=== PATIENT | female | born 1960 | race Caucasian/White ===

== ENCOUNTER → 2016-02-20 | Outpatient (CLI) | payer BC ==
[~2016-02-20] MED LIST: CLB200 PO; HYDR-5688 PO; LEVO125T4 PO; METO25TA3 PO; MULT-506 PO; OXYSR10 PO; XRL10 PO
--- NOTE | 2016-02-20 15:47 | MAMMOGRAPHY REPORT ---
BILATERAL DIGITAL SCREENING MAMMOGRAM TOMOSYNTHESIS WITH CAD: 02/20/2016 CLINICAL HISTORY: Routine screening. Patient has no complaints. TECHNIQUE: Breast tomosynthesis in addition to standard 2D mammography was performed. Current study was also evaluated with a Computer Aided Detection (CAD) system. COMPARISON: Comparison is made to exams dated: 10/28/2013 mammogram, 08/05/2012 mammogram, 04/24/2010 mammogram, and 02/12/2009 mammogram - [facility]. BREAST COMPOSITION: There are scattered areas of fibroglandular density in both breasts. FINDINGS: No suspicious masses, calcifications, or areas of architectural distortion are noted in e ither breast. There has been no significant interval change compared to prior exams. IMPRESSION: ACR BI-RADS CATEGORY 1: NEGATIVE There is no mammographic evidence of malignancy. A 1 year screening mammogram is recommended. The p atient will receive written notification of the results. Approximately 10% of breast cancers are not detected with mammography. A negative mammographic repor t should not delay biopsy if a clinically suggestive mass is present. Tiffani Herrera M.D. ah/:02/20/2016 15:31:57 [employer] Supervisor: Cher Vaz [facility] letter sent: Normal 1/2 BI-RADS Code: ACR BI-RADS Category 1: Negative
== END | disposition home or self-care (01) ==
LOC: C.MAMM 15:03
PROVIDERS: ATTEND Family Medicine
DX: Z12.31 Encounter for screening mammogram for malignant neoplasm of breast (principal)

== ENCOUNTER → 2017-03-09 | Outpatient (CLI) | payer BC ==
[~2017-03-09] MED LIST changes: -LEVO125T4 PO; +LEVO125T5 PO
[2017-03-09 12:44] LABS: BASO % 0.6 %; BASO ABS # 0.04 K/uL (0-0.2); EOS % 2.7 %; EOS ABS # 0.18 K/uL (0-0.5); HEMATOCRIT 43.8 % (37-47); HEMOGLOBIN 14.3 g/dL (12.0-16.0); IG# 0.02 K/uL (0.00-0.02); LYMPH % 30.6 %; LYMPH ABS # 2.02 K/uL (1.2-3.4); MEAN CELL VOLUME 89.6 fL (80-100); MEAN CORPUSCULAR HEMOGLOBIN 29.2 pg (25-34); MEAN CORPUSCULAR HGB CONC 32.6 g/dl (32-36); MEAN PLATELET VOLUME 11.3 fL (7.4-10.4); MONO % 10.7 %; MONO ABS # 0.71 K/uL (0.11-0.59); NEUT % 55.1 %; NEUT ABS # 3.64 K/uL (1.4-6.5); PLATELET COUNT 247 K/uL (130-400); RED CELL DISTRIBUTION WIDTH CV 12.8 % (11.5-14.5); RED CELL DISTRIBUTION WIDTH SD 41.1 fL (36.4-46.3); WHITE BLOOD COUNT 6.61 K/uL (4.8-10.8)
== END | disposition home or self-care (01) ==
LOC: C.LABMFLN 08:23
PROVIDERS: ATTEND Family Medicine
DX: E03.9 Hypothyroidism, unspecified (principal); E78.00 Pure hypercholesterolemia, unspecified; D64.9 Anemia, unspecified

== ENCOUNTER → 2017-04-28 | Outpatient (CLI) | payer BC ==
[~2017-04-28] MED LIST changes: +ASPI81TA28 PO; -CLB200 PO; -HYDR-5688 PO; +MELO7.5T5 PO; -METO25TA3 PO; -OXYSR10 PO; -XRL10 PO; +[UNRECOGNIZED DRUG - OTHER] PO
== END | disposition home or self-care (01) ==
LOC: C.LABMFLN 15:44
PROVIDERS: ATTEND Family Medicine
DX: E03.9 Hypothyroidism, unspecified (principal)

== ENCOUNTER 2017-05-20 04:48 | Inpatient (IN) | payer BC ==
[2017-04-24 11:35] VITALS: Ht 154.9 cm; Wt 112.3 kg
--- NOTE | 2017-04-24 12:06 | PAT Medication Instructions ---
Service Date Apr 24, 2017. Current Home Medication List Aspirin (Aspirin Ec), 81 MG PO QAM Levothyroxine Sodium (Levothyroxine Sodium), 125 MCG PO HS Meloxicam (Mobic), 15 MG PO QAM Multivitamin (Multivitamin), 1 TAB PO HS [Zzquil], 15 ML PO HS PRN for events traffic controller Instructions For Your Scheduled Surgery - Check with surgeon for instructions: Meloxicam (Mobic), 15 MG PO QAM - Take the following medications the morning of surgery with a sip of water: Aspirin (Aspirin Ec), 81 MG PO QAM - Take the following medications as scheduled the night before surgery: [Zzquil], 15 ML PO HS PRN for RN (for sleep aide)-- if needed Multivitamin (Multivitamin), 1 TAB PO HS Levothyroxine Sodium (Levothyroxine Sodium), 125 MCG PO HS If you have any questions please call us at [phone] or [phone] or [phone]
[2017-04-24 12:54] LABS: BASO % 0.4 %; BASO ABS # 0.04 K/uL (0-0.2); EOS % 1.7 %; EOS ABS # 0.16 K/uL (0-0.5); HEMATOCRIT 42.3 % (37-47); HEMOGLOBIN 14.2 g/dL (12.0-16.0); IG# 0.03 K/uL (0.00-0.02); LYMPH % 21.9 %; MEAN CELL VOLUME 89.1 fL (80-100); MEAN CORPUSCULAR HEMOGLOBIN 29.9 pg (25-34); MEAN CORPUSCULAR HGB CONC 33.6 g/dl (32-36); MEAN PLATELET VOLUME 10.8 fL (7.4-10.4); MONO % 6.9 %; MONO ABS # 0.66 K/uL (0.11-0.59); NEUT % 68.8 %; NEUT ABS # 6.62 K/uL (1.4-6.5); PLATELET COUNT 238 K/uL (130-400); RED CELL DISTRIBUTION WIDTH CV 13.1 % (11.5-14.5); RED CELL DISTRIBUTION WIDTH SD 42.8 fL (36.4-46.3); WHITE BLOOD COUNT 9.61 K/uL (4.8-10.8)
--- NOTE | 2017-04-24 12:59 | DIAGNOSTIC IMAGING REPORT ---
CHEST 2 VIEWS ROUTINE HISTORY: 56 years-old Female PAT preoperative exam. No acute chest complaints. COMPARISON: Chest radiographs 03/03/2014 TECHNIQUE: PA and lateral views of the chest. FINDINGS: Cardiac mediastinal and hilar silhouettes are within normal limits. Mild right hemidiaphragmatic elevation. There is no pneumothorax, pleural effusion, focal airspace consolidation or overt pulmonary edema. The bones of the chest appear grossly intact. IMPRESSION: No acute process. The above report was generated using voice recognition software. It may contain grammatical, syntax or spelling errors. Electronically signed by: Cristian Grande M.D. 04/24/2017 12:57 PM Dictated Date/Time: 04/24/2017 12:56 PM
[2017-04-24 13:06] LABS: PTT PATIENT 27.9 SECONDS (21.0-31.0)
[2017-04-24 13:10] LABS: ALBUMIN 3.5 gm/dl (3.4-5.0); CALCIUM 9.4 mg/dl (8.5-10.1); CREATININE 0.84 mg/dl (0.60-1.20); POTASSIUM 4.1 mmol/L (3.5-5.1)
[2017-04-24 13:28] LABS: HEMOGLOBIN A1C 5.7 % (4.5-5.6)
--- NOTE | 2017-05-19 22:17 | HISTORY & PHYSICAL EXAMINATION ---
DATE OF ADMISSION: 05/20/2017 CHIEF COMPLAINT: Chronic left knee pain. HISTORY OF PRESENT ILLNESS: This is a 56-year-old female patient of Dr. Rose'matthew complaining of chronic left knee pain, longstanding, now progressively getting worse. Patient has been diagnosed with end-stage osteoarthritis. Patient has failed conservative treatment including intraarticular injections, anti-inflammatories and the use of a brace. Patient has increased pain with weightbearing activities and her pain does interfere with her activities of daily living. PAST MEDICAL HISTORY: Osteoarthritis, acid reflux, obesity, dentures. SOCIAL HISTORY: Nonsmoker, occasional drinker. PAST SURGICAL HISTORY: x2, hysterectomy, knee replacement on the right and teeth extraction. REVIEW OF SYSTEMS: Patient complains of chronic left knee pain and instability. Otherwise denies any shortness of breath, chest pain, nausea, vomiting or any other joint complaints. FAMILY HISTORY: Noncontributory. MEDICATIONS: Levothyroxine 125 mcg daily, aspirin 81 mg daily, Meloxicam 15 mg daily, vitamin daily and at night for sleep. ALLERGIES: FLEXERIL. PHYSICAL EXAMINATION: GENERAL: Well-developed, well-nourished 56-year-old female in no acute distress. She is alert and oriented x3 and pleasant. HEENT: Normocephalic, atraumatic. Extraocular motions are intact. Pupils are equal and reactive to light. HEART: Regular rate and rhythm, no murmurs. LUNGS: Clear. ABDOMEN: Soft, nontender, bowel sounds present. EXTREMITIES: Left knee, she has crepitation with passive range of motion. Range of motion is limited to 0-120 degrees. She has a mild effusion with 5/5 strength. NEUROLOGIC: Neurovascularly, she is intact with medial joint line tenderness. DIAGNOSES: Left knee end-stage osteoarthritis, acid reflux, obesity. PLAN: Patient was advised of her diagnoses. Indications, risks, benefits, postop course have all been reviewed. Patient wished to proceed with a left total knee arthroplasty. Necessary consent forms, preoperative testing, clearances will be obtained.
[2017-05-20] VITALS (8 sets, daily range): BP systolic 106–131; BP diastolic 71–94; PULSE 75–92; TEMP 36.4–36.8; O2SAT 95–100
[~2017-05-20] VITALS: Ht 154.9 cm; Wt 112.3 kg
[2017-05-20] MEDS ORDERED: ACET-1256 PO (05:52)
[2017-05-20] MEDS ORDERED: DEXAMETHASONE 4 MG TAB PO SCH (06:00)
[2017-05-20] MEDS ORDERED: LACTATED RINGER'S 1000ML 500 ML IV SCH (06:00)
[2017-05-20] MEDS ORDERED: CEFAZOLIN 2000MG IV PUSH 15 ML IV SCH (06:00)
[2017-05-20] MEDS ORDERED: ACETAMINOPHEN 500 MG TAB PO SCH (06:00)
[2017-05-20] MEDS ORDERED: LACTATED RINGER'S 1000ML 1,000 ML IV SCH (06:00)
[2017-05-20] MEDS ORDERED: GABAPENTIN 600 MG PO SCH (06:00)
[2017-05-20] MEDS ORDERED: ROPIVACAINE 5MG/ML 30 ML 150 MG, BUPIVACAINE 0.5% MPF INJ 30 ML, EpINEphrine HCL INJ 0.... INFIL SCH ×8 (06:00)
[2017-05-20] MEDS ORDERED: FAMOTIDINE 20 MG TAB PO SCH (06:00)
[2017-05-20] MEDS ORDERED: CeleBREX 200 MG CAP PO SCH (06:00)
[2017-05-20] MEDS ORDERED: BUPIVACAINE 0.25% 30 ML VIAL ONE (06:20)
[2017-05-20] MEDS ORDERED: BUPIVACAINE 0.5 % 5 MG/1 ML PF 10ML VIAL ONE (06:20)
[2017-05-20] MEDS ORDERED: MIDAZOLAM HCL 1 MG/ML 2ML VIAL ONE (06:37)
[2017-05-20] MEDS ORDERED: FENTANYL CITRATE INJ 50 MCG/1 ML 2 ML VIAL ONE (06:37)
[2017-05-20] MEDS ORDERED: ORTHO JOINT ANESTHETIC ONE (06:39)
[2017-05-20] MEDS ORDERED: BACITRACIN 50000 UNIT VIAL ONE (06:40)
[2017-05-20] MEDS ORDERED: POVIDONE-IODINE OP SOLN 30 ML BTL ONE (06:40)
[2017-05-20] MEDS: TRANEXAMIC ACID INJ 1,000 MG x 2 Bags IV SCH ×4 (06:45→08:45)
--- NOTE | 2017-05-20 06:49 | History & Physical Bridge Note ---
H&P Re-Evaluation Bridge Note: I have examined the patient, reviewed the History & Physical and in the interval since the performance of the History & Physical I have noted the following changes of clinical significance: No changes noted
[2017-05-20] MEDS ORDERED: ATROPINE SULFATE 0.1 MG/ML 5ML SYR IV PRN (08:15)
[2017-05-20] MEDS ORDERED: EpHEDrine SULFATE INJ 50 MG/ML AMP IV PRN (08:15)
--- NOTE | 2017-05-20 08:29 | [facility] Post Operative Brief Note ---
Immediate Operative Summary Operative Date May 20, 2017. Pre-Operative Diagnosis Left Knee End-Stage Osteoarthritis Post-Operative Diagnosis same Procedure(s) Performed Left Total Knee Arthroplasty Surgeon Dr. Taras Rose Table Lever Operator Surgeon(s) Yadiel Bush Pa-c Estimated Blood Loss 10cc Findings Consistent with Post-Op Diagnosis Specimens Specimen A: Left Knee bone and Tissue Drains 2 hemovac Anesthesia Type Spinal MAC Complication(s) none Disposition Disposition: Recovery Room / PACU
[2017-05-20] MEDS ORDERED: PROPOFOL IV EMULSION 10 MG/ML 20 ML VIAL IV ONE ×3 (08:45)
[2017-05-20] MEDS ORDERED: LIDOCAINE HCL 2% 2 ML VIAL (20MG/ML) ONE (08:45)
[2017-05-20] MEDS ORDERED: ZOLPIDEM TARTRATE 5 MG TAB PO PRN (09:30)
[2017-05-20] MEDS ORDERED: METOCLOPRAMIDE HCL INJ 5 MG/ML 2 ML VIAL IV PRN (09:30)
[2017-05-20] MEDS ORDERED: TRAMADOL HCL 50 MG TAB PO PRN (09:30)
[2017-05-20] MEDS ORDERED: ONDANSETRON INJ 2 MG/ML 2 ML VIAL IV PRN (09:30)
[2017-05-20] MEDS ORDERED: BISACODYL 10 MG SUPP PR PRN (09:30)
[2017-05-20] MEDS ORDERED: SOD PHOSPHATE/SOD BIPHOSPHATE ENEMA 132 ML BTL PR PRN (09:30)
[2017-05-20] MEDS ORDERED: MAGNESIUM HYDROXIDE SUSP 30 ML UDC PO PRN (09:30)
[2017-05-20] MEDS ORDERED: MoRPHine SULFATE 2 MG/ML CARP IV PRN (09:30)
--- NOTE | 2017-05-20 09:50 | DIAGNOSTIC IMAGING REPORT ---
L KNEE 1 OR 2 VIEWS ROUTINE CLINICAL HISTORY: 56 years-old Female presenting with AP/LATERAL IN PACU LEFT KNEE. TECHNIQUE: Frontal and lateral views of the left knee were obtained. COMPARISON: None. FINDINGS: Postsurgical changes of total left knee arthroplasty with patellar resurfacing. And surgical drains in place. Overlying skin angelica. Expected intra-articular and soft tissue emphysema. No malalignment. No periprosthetic fracture. No hardware complication. IMPRESSION: Expected postsurgical appearance status post total left knee arthroplasty with patellar resurfacing. Electronically signed by: Geronimo López M.D. 05/20/2017 9:48 AM Dictated Date/Time: 05/20/2017 9:47 AM
--- NOTE | 2017-05-20 10:34 | Anesthesiology Progress Note ---
Anesthesia Post Op Note Date & Time May 20, 2017 at 10:33 Vital Signs Pain Intensity: 0 Vital Signs Past 12 Hours Date Time Temp Pulse Resp B/P (MAP) Pulse Ox O2 Delivery O2 Flow Rate FiO2 05/20/17 10:15 36.5 79 18 106/79 98 Nasal Cannula 2 05/20/17 10:05 76 16 109/79 98 Nasal Cannula 2 05/20/17 09:55 80 16 130/80 97 Nasal Cannula 2 05/20/17 09:45 80 14 114/78 97 Oxymask 10 05/20/17 09:35 80 14 102/66 100 Oxymask 10 05/20/17 09:25 36.8 84 14 104/60 98 Oxymask 10 05/20/17 06:08 36.8 77 20 131/94 96 Room Air Notes Mental Status: alert / awake / arousable, participated in evaluation Pt Amnestic to Procedure: Yes Nausea / Vomiting: adequately controlled Pain: adequately controlled Airway Patency, RR, SpO2: stable & adequate BP & HR: stable & adequate Hydration State: stable & adequate Neuraxial Anesthesia: was administered, sensory block is resolving Anesthetic Complications: no major complications apparent
[2017-05-20] MEDS: D5W AND 1/2NSS + 20MEQ KCL 1,000 ML IV SCH ×2 (12:18→20:28)
[2017-05-20] MEDS: ACETAMINOPHEN 500 MG TAB PO SCH ×2 (14:01→22:20)
--- NOTE | 2017-05-20 15:22 | [facility] Operative Report ---
Operative Report Operative Date May 20, 2017. Pre-Operative Diagnosis Left Knee End-Stage Osteoarthritis, obesity BMI 46.8 Post-Operative Diagnosis Same Procedure(s) Performed Left total knee arthroplasty Surgeon Dr. Taras Rose Dress Designer Surgeon(s) Yadiel Bush Pa-c Estimated Blood Loss 5 ml Findings Varus knee, obesity about the upper thigh mainly an abdominal grade 4 medial compartment DJD Specimens Specimen A: Left Knee bone and Tissue Drains 2 hemovac Anesthesia Spinal sedation regional block and orthomix Complication(s) None Disposition Recovery Room / PACU Indications 56-year-old female end-stage osteoarthritis in her left knee status post previous right knee replacement in the past. Description of Procedure The patient was taken to the operating room and anesthetized under spinal sedation regional block. Patient was placed supine on the the operating table. A pneumatic tourniquet was placed about the left upper thigh. The knee exam demonstrated full extension flexion to 130 no pseudolaxity no instability. The left lower extremity was prepped and draped in sterile fashion using ChloraPrep. The leg was elevated exsanguinated with an Esmarch bandage and pneumatic tourniquet was raised to 350 mmHg. An anterior longitudinal incision was made across the knee. Skin flaps were elevated. An incision was made into the medial retinaculum and extended up into the mid third of the quadriceps tendon and extended down to the tibial tubercle. Intra-articular findings demonstrated grade 4 medial compartment OA minor bone loss some tricompartmental osteophytes. The knee was exposed by excising cruciate ligaments and menisci. The infrapatellar fat pad was resected. The fat pad over the anterior femur at the upper aspect of the articular surface was resected for placement of the component in that area. A subperiosteal peel lateral release was performed around the patella The ZOOM TVn total knee arthroplasty system was utilized for the procedure. The drill holes made into the femur and the intramedullary guide tyree placed and this was adjusted to resect 8 mm distal femur and a 5 valgus cut. The distal femoral cut was made. The sizing guide placed and drill holes placed in 3 external rotation to match the epicondylar axis. The femur was sized for 4 the 4-in-1 cutting guide was pinned in position. The anterior posterior and chamfer cuts were made. The knee was extended and a free hand cut technique was performed to the patella. The patella with was measured and the width was reproduced using a patella component. 3 drill holes are made for the patella component pegs. The tibia was then subluxed. The external tibial cutting guide was just to make a perpendicular cut to the long axis of the tibia. The proximal tibial cut was made with the oscillating saw. The size 4 tibial trial was externally rotated in line with the tibial tubercle and pinned in position. The punch for the stem was used . The femoral notch cutting device was centered and the notch cut was made followed by placement of the femoral trial. Tibial trials were used for the insert. The size 11 trial gave balanced ligaments through full range of motion. Patella tracking was assessed with range of motion. The patella tracked centrally. The trials were removed. The Orthomix anesthetic cocktail was injected per protocol. The cut bone surfaces and soft tissue were copiously irrigated with antibiotic solution with bacitracin. The final components were cemented with Simplex cement. The final components were triathlon size 4 left posterior stabilized femur with 4 primary tibial baseplate and size 4 x 11 mm thick posterior stabilized X3 poly-insert and the size S 33 mm x 9 mm patella.. While the cement cured the Betadine soak was used per protocol. When the cement cured the knee was copiously irrigated with pulsatile lavage antibiotic solution with bacitracin. 2 drains were brought out laterally connected to Hemovac. The quadriceps tendon and medial retinaculum were closed with interrupted [id number] #1 Vicryl sutures. The knee was taken through full range of motion and repair was secure. The subcutaneous tissues were closed with 2-0 Vicryl sutures. The skin was closed with angelica. A sterile dressing was applied. The tourniquet was let down and the patient had good capillary refill to the extremity. The patient tolerated the procedure well. My physician financial services assistant Yadiel LACEY assisted in the procedure including prepping draping leg positioning soft tissue retraction instrument management and assisted in the closure ,dressings application and will participate in postoperative care the patient. I attest to the content of the Intraoperative Record and any orders documented therein. Any exceptions are noted below.
[2017-05-20] MEDS: CEFAZOLIN IV 2,000 MG in SYRINGE 0 ML IV SCH ×2 (15:59→23:20)
[2017-05-20] MEDS: DOCUSATE SODIUM 100 MG CAP PO SCH (20:27)
[2017-05-20] MEDS: CeleBREX 200 MG CAP PO SCH (20:28)
[2017-05-21 03:20] VITALS: BP 109/85; PULSE 88; TEMP 36.4; O2SAT 97
[2017-05-21] MEDS: LEVOTHYROXINE 125 MCG TAB PO SCH (05:16)
[2017-05-21] MEDS: D5W AND 1/2NSS + 20MEQ KCL 1,000 ML IV SCH (05:17)
[2017-05-21] MEDS: ACETAMINOPHEN 500 MG TAB PO SCH ×3 (05:17→21:55)
[2017-05-21 05:57] LABS: HEMATOCRIT 35.1 % (37-47); HEMOGLOBIN 11.5 g/dL (12.0-16.0); MEAN CELL VOLUME 88.9 fL (80-100); MEAN CORPUSCULAR HEMOGLOBIN 29.1 pg (25-34); MEAN CORPUSCULAR HGB CONC 32.8 g/dl (32-36); MEAN PLATELET VOLUME 10.3 fL (7.4-10.4); PLATELET COUNT 239 K/uL (130-400); RED CELL DISTRIBUTION WIDTH CV 13.2 % (11.5-14.5); RED CELL DISTRIBUTION WIDTH SD 43.1 fL (36.4-46.3)
[2017-05-21 06:32] LABS: CALCIUM 8.3 mg/dl (8.5-10.1); CREATININE 0.88 mg/dl (0.60-1.20); POTASSIUM 4.2 mmol/L (3.5-5.1)
[2017-05-21 07:02] VITALS: BP 116/80; PULSE 81; TEMP 36.6; O2SAT 94
[2017-05-21] MEDS: OXYCODONE HCL IR 5 MG TAB (IMMEDIATE RELEASE) PO PRN ×4 (08:35→23:37)
[2017-05-21] MEDS: CeleBREX 200 MG CAP PO SCH ×2 (08:35→21:54)
[2017-05-21] MEDS: MULTIVITAMIN TAB PO SCH (08:36)
[2017-05-21] MEDS: RIVAROXABAN 10 MG TAB PO SCH (08:36)
[2017-05-21] MEDS: PANTOprazole SOD 40 MG TAB PO SCH (08:36)
[2017-05-21] MEDS: DOCUSATE SODIUM 100 MG CAP PO SCH ×2 (08:36→21:54)
--- NOTE | 2017-05-21 09:54 | Orthopedic Progress Note ---
Orthopedic Progress Note Date of Service May 21, 2017. Subjective Post OP Day: 1 Reports: feeling well, pain controlled w PO medications, Denies: complaints, chest pain, SOB, nausea / vomiting, light headedness, calf pain Objective calves soft nontender, N/V intact, capillary refill less than 2 sec., dressing C /D/I, A&O x3, toes mobile Date Time Temp Pulse Resp B/P (MAP) Pulse Ox O2 Delivery O2 Flow Rate FiO2 05/21/17 08:00 Room Air 05/21/17 07:02 36.6 81 18 116/80 (92) 94 Room Air 05/21/17 03:20 36.4 88 18 109/85 (93) 97 Room Air 05/20/17 23:15 Room Air 05/20/17 22:44 36.6 78 18 117/75 (89) 95 Room Air 05/20/17 19:36 36.4 86 18 123/81 (95) 95 Room Air 05/20/17 15:40 Nasal Cannula 2.0 05/20/17 15:10 36.7 81 19 113/74 (87) 97 Nasal Cannula 2.0 05/20/17 13:30 36.5 92 17 125/82 (96) 97 Nasal Cannula 2.0 05/20/17 12:30 36.4 78 16 113/80 (91) 97 Nasal Cannula 2.0 05/20/17 11:00 36.4 76 16 111/78 (89) 98 Nasal Cannula 2.0 05/20/17 11:00 36.4 75 16 117/78 (91) 99 Nasal Cannula 2.0 05/20/17 10:35 Nasal Cannula 2.0 05/20/17 10:35 36.6 77 16 106/71 (83) 100 Nasal Cannula 2.0 05/20/17 10:35 100 Nasal Cannula 2.0 05/20/17 10:15 36.5 79 18 106/79 98 Nasal Cannula 2 05/20/17 10:05 76 16 109/79 98 Nasal Cannula 2 05/20/17 09:55 80 16 130/80 97 Nasal Cannula 2 Laboratory Results 24 Hours: Test 05/21/17 05:26 Hematocrit 35.1 % Hemoglobin 11.5 g/dL Assessment & Plan Assessment: POD #1, Left TKA Plan: PT/ OT DVT proph- Xarelto D/C planning- OPPT As per medicine Inhouse Planning Pain Management: Celebrex, Ultram, Morphine, PO Tylenol, Oxy IR DVT Prophylaxis: TEDs, SCDs, Xarelto Discharge Planning Discharge Planning: home with oppt Pain Management: PO Tylenol, Oxy IR DVT Prophylaxis: TEDs, Xarelto Therapy: Physical Therapy, Occupational Therapy
[2017-05-21 11:01] VITALS: BP 118/80; PULSE 77; TEMP 36.5; O2SAT 97
--- NOTE | 2017-05-21 14:17 | Anesthesiology Progress Note ---
Anesthesia Post Op Note Date & Time May 21, 2017 at 14:16 Vital Signs Vital Signs Past 12 Hours Date Time Temp Pulse Resp B/P (MAP) Pulse Ox O2 Delivery O2 Flow Rate FiO2 05/21/17 11:01 36.5 77 18 118/80 (93) 97 Room Air 05/21/17 08:00 Room Air 05/21/17 07:02 36.6 81 18 116/80 (92) 94 Room Air 05/21/17 03:20 36.4 88 18 109/85 (93) 97 Room Air Notes Mental Status: alert / awake / arousable, participated in evaluation Pt Amnestic to Procedure: Yes Nausea / Vomiting: adequately controlled Pain: adequately controlled Airway Patency, RR, SpO2: stable & adequate BP & HR: stable & adequate Hydration State: stable & adequate Neuraxial Anesthesia: sensory block resolved Anesthetic Complications: no major complications apparent
[2017-05-21 15:20] VITALS: BP 106/71; PULSE 80; TEMP 36.5; O2SAT 98
[2017-05-21 23:12] VITALS: BP 123/81; PULSE 76; TEMP 36.6; O2SAT 94
[2017-05-22] MEDS: LEVOTHYROXINE 125 MCG TAB PO SCH (05:23)
[2017-05-22] MEDS: ACETAMINOPHEN 500 MG TAB PO SCH (05:24)
[2017-05-22 06:13] LABS: HEMATOCRIT 32.7 % (37-47); HEMOGLOBIN 10.6 g/dL (12.0-16.0); MEAN CELL VOLUME 90.1 fL (80-100); MEAN CORPUSCULAR HEMOGLOBIN 29.2 pg (25-34); MEAN CORPUSCULAR HGB CONC 32.4 g/dl (32-36); MEAN PLATELET VOLUME 10.5 fL (7.4-10.4); PLATELET COUNT 194 K/uL (130-400); RED CELL DISTRIBUTION WIDTH CV 13.5 % (11.5-14.5); RED CELL DISTRIBUTION WIDTH SD 44.8 fL (36.4-46.3); WHITE BLOOD COUNT 7.53 K/uL (4.8-10.8)
[2017-05-22 06:44] LABS: CREATININE 0.94 mg/dl (0.60-1.20)
[2017-05-22 06:45] LABS: CALCIUM 8.3 mg/dl (8.5-10.1); POTASSIUM 4.1 mmol/L (3.5-5.1)
[2017-05-22 06:56] VITALS: BP 112/79; PULSE 83; TEMP 36.6; O2SAT 95
--- NOTE | 2017-05-22 06:56 | Orthopedic Progress Note ---
Orthopedic Progress Note Date of Service May 22, 2017. Subjective Post OP Day: 2 Reports: feeling well, pain controlled w PO medications, Denies: complaints, chest pain, SOB, nausea / vomiting, light headedness, calf pain Objective calves soft nontender, N/V intact, capillary refill less than 2 sec., dressing C /D/I, A&O x3, toes mobile Silverlon in tact. Date Time Temp Pulse Resp B/P (MAP) Pulse Ox O2 Delivery O2 Flow Rate FiO2 05/21/17 23:15 Room Air 05/21/17 23:12 36.6 76 18 123/81 (95) 94 Room Air 05/21/17 15:20 36.5 80 17 106/71 (83) 98 Room Air 05/21/17 15:00 Room Air 2.0 05/21/17 11:01 36.5 77 18 118/80 (93) 97 Room Air 05/21/17 08:00 Room Air 05/21/17 07:02 36.6 81 18 116/80 (92) 94 Room Air Laboratory Results 24 Hours: Test 05/22/17 05:20 Hematocrit 32.7 % Hemoglobin 10.6 g/dL Assessment & Plan Assessment: POD #2, Left TKA Plan: PT/ OT DVT proph- Xarelto D/C planning- OPPT today As per medicine Inhouse Planning Pain Management: Celebrex, Ultram, Morphine, PO Tylenol, Oxy IR DVT Prophylaxis: TEDs, SCDs, Xarelto Discharge Planning Discharge Planning: home with oppt Pain Management: PO Tylenol, Oxy IR DVT Prophylaxis: TEDs, Xarelto Therapy: Physical Therapy, Occupational Therapy
[2017-05-22] MEDS ORDERED: XRL10 PO (06:58)
[2017-05-22] MEDS ORDERED: CLB200 PO (06:58)
[2017-05-22] MEDS ORDERED: ACET-24 PO (06:58)
[2017-05-22] MEDS ORDERED: RXC5 PO (06:58)
--- NOTE | 2017-05-22 06:59 | Discharge Instructions ---
Discharge Instructions Date of Service May 22, 2017. Admission Reason for Admission: Left Knee Degenerative Joint Disease Discharge Discharge Diagnosis / Problem: LEFT5 TKA Discharge Goals Goal(s): Improve function Activity Recommendations Activity Limitations: as noted below . Instructions / Follow-Up Instructions / Follow-Up ACTIVITY RECOMMENDATIONS: SELF CARE INSTRUCTIONS AFTER TOTAL KNEE REPLACEMENT A. You may need to continue a physical therapy program after discharge from the hospital. There are several options available to you. Your doctor will assist you in selecting the best one for you. 1. An out-patient facility 2 to 3 times a week for therapy or home therapy. 2. Continue working on all exercises taught to you in the hospital. Your goals should be to increase bending of your knee to 90 degrees and beyond and to fully straighten your knee. B. You may progress at your own pace from walking with a walker or crutches to a cane; then to no assistive devices. C. Make walking a part of your daily routine. Be up as much as comfortable with rest periods throughout the day. Rest with leg elevation is very important. Use the ice wrap frequently for the first 3-4 weeks. D. There are no restrictions on activities. You may ride in a car, shop, participate in welfare centre manager and all social activities. E. Wear the long elastic stockings (FREDY hose) 20 hours a day for 2 weeks after surgery. They can be removed several times a day for laundering and for a bath. F. You may shower, no tub baths until cleared by your doctor. SPECIAL CARE INSTRUCTIONS: VERY IMPORTANT TO READ AND REVIEW A. There are a few signs you need to watch for after you are home. Call [facility] if you notice any of the followin. Increased severe knee pain. Some pain is expected especially when you exercise. 2. Increased swelling in your leg or knee; pain or swelling of the calf muscle in either lower leg. 3. Any fluid drainage from the incision. 4. Shortness of breath or chest pain. B. Please call [facility] at if you have any concerns or questions about your operation or recovery. The doctor or his nurse will return your call promptly. C. You must take antibiotics before dental work, bladder, bowel or other surgery. Your doctor will provide you with a permanent care to carry describing this precaution. IMPORTANT: * REMEMBER TO TAKE ASPIRIN, 81 MG, TWICE DAILY FOR 4 WEEKS UNLESS OTHERWISE DIRECTED. THIS IS YOUR BLOOD THINNER. * HIGH RISK PATIENTS MAY BE PRESCRIBED A STRONGER BLOOD THINNER. THIS WILL BE PROVIDED AT DISCHARGE. * CALL IF INCREASED PAIN, REDNESS, DRAINAGE OR FEVER GREATER THAT 101. * WEAR FREDY HOSE 20 HOURS PER DAY FOR 2 WEEKS. * YOU MAY HAVE A LARGE BAND-AID LIKE DRESSING (SILVERON). THIS WILL REMAIN ON YOUR INCISION FOR 7 DAYS, THEN CAN BE REMOVED. IF INCISION IS LEAKING THROUGH DRESSING, CALL THE OFFICE . FOLLOW UP VISIT: If appointment is not already scheduled: Please call [facility] to make a follow-up appointment for 2 weeks after your surgery at . Current Hospital Diet Patient's current hospital diet: Regular Diet Discharge Diet Recommended Diet: Regular Diet Procedures Procedures Performed: Left Total Knee Arthroplasty Pending Studies Studies pending at discharge: no Laboratory Results Hemoglobin A1c Test 04/24/17 12:11 Range/Units Estimated Average Glucose 117 mg/dl Hemoglobin A1c 5.7 H 4.5-5.6 % Lipid Panel Test 03/09/17 08:27 Range/Units Triglycerides Level 205 H 0-150 mg/dl Cholesterol Level 237 H 0-200 mg/dl HDL Cholesterol 51 mg/dl Cholesterol/HDL Ratio 4.6 LDL Cholesterol, Calculated 145 mg/dl Medical Emergencies . Who to Call and When: Medical Emergencies: If at any time you feel your situation is an emergency, please call 911 immediately. . Non-Emergent Contact Non-Emergency issues call your: Primary Care Provider . "Provider Documentation" section prepared by Yadiel Bush. . [place] Drug Monitoring Program Search Results: patient reviewed within database, no issues identified
[2017-05-22 08:02] VITALS: BP 112/79; PULSE 83; TEMP 36.6; O2SAT 95
[2017-05-22] MEDS: OXYCODONE HCL IR 5 MG TAB (IMMEDIATE RELEASE) PO PRN ×2 (08:26→11:03)
[2017-05-22] MEDS: MULTIVITAMIN TAB PO SCH (08:26)
[2017-05-22] MEDS: RIVAROXABAN 10 MG TAB PO SCH (08:27)
[2017-05-22] MEDS: DOCUSATE SODIUM 100 MG CAP PO SCH (08:27)
[2017-05-22] MEDS: CeleBREX 200 MG CAP PO SCH (08:27)
[2017-05-22] MEDS: PANTOprazole SOD 40 MG TAB PO SCH (08:27)
== END 2017-05-22 11:39 | disposition home or self-care (01) | DRG 470 ==
LOC: C.ACU 04:48 → C.3E 06:00 → ENRESERV 09:41
PROVIDERS: ADMIT Orthopaedic Surgery Sports Medicine; ATTEND Orthopaedic Surgery Sports Medicine
PROC: 0SRD0J9 Replacement of Left Knee Joint with Synthetic Substitute, Cemented, Open Approach (ICD-10-PCS; principal; 2017-05-20 07:00)
DX: M17.12 Unilateral primary osteoarthritis, left knee (principal); E66.9 Obesity, unspecified; Z68.42 Body mass index [BMI] 45.0-49.9, adult; K21.9 Gastro-esophageal reflux disease without esophagitis; Z79.82 Long term (current) use of aspirin; Z79.899 Other long term (current) drug therapy

== ENCOUNTER 2024-11-13 09:50 | Inpatient (IN) ==
--- NOTE | 2024-11-13 10:44 | Emergency Department Note ---
Impression & Plan Acute tonsillitis, Headache, Sialadenitis, Failure of outpatient treatment ED Provider Note NAME: NELI MEREDITH AGE: 64 SEX: F : 1960 ARRIVES VIA: Walk-In INFORMANT: [Patient] ED PROVIDER(S): [Juanjo Walsh MD] CHIEF COMPLAINT: Head pain HISTORY OF PRESENT ILLNESS: Patient is a 64-year-old female whose had a headache for 6 months. She states that for 3 or 4 days, her headache has been worse and, she has developed a sore throat and pain to swallow on the left. Patient went to the [facility] 2 days ago and had a CT of her neck and head. The CT of the head showed a potential Chiari malformation but no acute intracranial bleeding. The CT of the neck showed tonsillitis. Strep test was negative. The patient was given amoxicillin. She states that her symptoms are worsening. She has photophobia, her headache is worse especially, if she tries to lean forward. Her left neck pain and swallowing is worse and she cannot really take anything in by mouth because of the discomfort. She thinks she may have had a fever, she definitely has some nausea. There has been no head trauma. No respiratory complaints. She is using [id number] pain meds without relief. PMHx/PSHx/Social Hx: See Below PHYSICAL EXAM: GENERAL: Patient is in no acute distress. HEENT: No acute trauma, normocephalic atraumatic, mucous membranes moist, no nasal congestion. Throat is erythematous with uvular and tonsillar edema. The left side is worse than the right. No trismus. Pupils equal and reactive to light. NECK: No stridor, moderate bilateral anterior cervical adenopathy-worse on the left, no meningismus, trachea is midline. LUNGS: Clear to auscultation bilaterally, no wheeze, no rhonchi, breath sounds equal. HEART: Slight systolic murmur, regular rate and rhythm. ABDOMEN: Soft, nontender, no peritonitis. EXTREMITIES: No cyanosis, full range of motion of all the joints without pain or difficulty. NEUROLOGIC: Oriented x 3, no acute motor or sensory deficits, no focal weakness. SKIN: No jaundice, no diaphoresis. DIFFERENTIAL DIAGNOSIS: Intracranial injury, aneurysm, arterial dissection, tonsillitis, abscess, meningitis, migraine, among others. EMERGENCY DEPARTMENT PROCEDURES: MEDICAL DECISION MAKING: There is no leukocytosis or concerning anemia. There is a normal platelet count. No bandemia. No renal failure or significant electrolyte abnormality. Lactic acid level is not elevated making sepsis less likely. No worrisome liver enzyme elevation. Patient appeared to be in a euthyroid state. Respiratory BioFire was negative. Chest x-ray did not show pneumonia or pneumothorax. Brain CT showed no acute bleed or mass effect. CTA of the head and neck were performed. There was no dissection or aneurysm. Tonsillitis and sialadenitis were noted. On exam, the patient had no focal neurologic deficits. There was no meningismus or fever. She had significant swelling of the tonsils with some edema. She had cervical adenopathy. Patient received IV saline for hydration, she was given 1 L. She received IV ceftriaxone, IV Decadron. She was given IV Zofran, IV Dilaudid, IV Compazine and IV Benadryl. The patient has noticed improvement in her symptoms with the above mentioned medications. Given her complaints and given her basic failed outpatient management, I do think hospitalization, IV antibiotic therapy, IV hydration, observation and ENT consult would be warranted. I spoke with the patient and case management, the on-call hospitalist was consulted. Prior/Outside records/notes reviewed: [facility] ED notes and CT imaging results from 2 days ago. ECG per my interpretation: Indication was headache. The ECG shows a normal sinus rhythm with a rate of 78. LVH is present. There is no ST elevation, no PVCs. The QTc is 424. Continuous Cardiac Monitoring per my interpretation: An order was placed for continuous cardiac monitoring. The monitor shows a rate of 84 with normal sinus rhythm. Imaging/x-ray results per my interpretation: Chest x-ray does not show pneumonia or CHF. Chronic Medical/Social conditions affecting care: None Care/Management discussed with: Case management, the on-call hospitalist. 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) (Acute) Severe obstructive sleep apnea (Acute) Familial hypercholesteremia (Acute) Chronic GERD (Acute) Allergic rhinitis (Acute) Hypothyroidism Vitamin D deficiency Prediabetes Adjustment reaction Abnormal weight gain (Acute) Chronic fatigue (Acute) Insomnia, persistent (Acute) DJD (degenerative joint disease) of knee (Acute 03/15/14) Left knee DJD Medical History Colon cancer screening High blood pressure Right-sided chest wall pain Encounter for mammogram to establish baseline mammogram Flu-like symptoms Pharyngitis Pharyngitis Open wound of right arm with tendon injury Overactive bladder Surgical History History of vaginal surgery History of tubal ligation History of hysterectomy Hx of knee surgery History of delivery Family History Father Bipolar disorder Bone cancer Lung cancer Mother Diabetes Hypertension Denies family history of Ovarian cancer Prostate cancer Myocardial infarction Breast cancer Colorectal cancer Social History Smoking Status: Never smoker Second Hand Exposure: No; Do You Dip or Chew Tobacco: No; Hx Alcohol Use: Yes Hx Substance Use: No Preferred Language: R[place] Communication Ability: Effective Visual Impairment: No Limitations Hearing Ability: Normal Beliefs That Will Affect Care: None marital status: Current Living Situation: Spouse current occupational status: employed current occupation: [employer] Feels Safe at Home: Yes Childhood Exposure to Second-Hand Smoke: Yes caffeine: Yes during the past year weight has: increased > 10 lbs Dental Care, Regularly: Yes Physical Activity Frequency: 3-4 Times per Week Seatbelt Use: sometimes Sunscreen Use: Yes Allergies Allergies Allergy/AdvReac Type Severity Reaction Status Date / Time cyclobenzaprine Allergy Unknown HIVES Verified 11/08/24 13:20 SWEATING Home Meds Home Medications Medication Instructions Recorded Confirmed aspirin 81 mg tablet 81 mg PO DAILY 09/26/24 11/13/24 trazodone 50 mg tablet 50 - 100 mg PO HS 11/13/24 11/13/24 Previous Rx's Medication Instructions Recorded multivitamin 1 tab PO DAILY #30 tabs 11/23/18 cholecalciferol (vitamin D3) 25 1,000 units PO DAILY #30 caps 05/03/ mcg (1,000 unit) capsule (Vitamin D3) CPAP Supplies #1 ea 08/11/22 levothyroxine 112 mcg tablet 112 mcg PO DAILY #90 tabs 12/02/23 bupropion HCl 300 mg 24 hr tablet, 300 mg PO QAM #90 tabs 09/12/24 extended release sertraline 25 mg tablet 25 mg PO DAILY #30 tabs 11/08/24 famotidine 20 mg tablet 20 mg PO DAILY #30 tabs 11/09/24 Results & Data (ED) Vital Signs Vital Signs - 24 hr 11/13/24 10:03 11/13/24 10:34 11/13/24 11:24 Temperature 36.8 C Temperature Source Temporal Artery Scan Pulse Rate 84 78 81 Pulse Rate [Apical] Pulse Rate from SpO2 Sensor 82 Pulse Rhythm [Apical] Respiratory Rate 22 15 13 Respiratory Effort / Characteristics Non-Labored Respiratory Depth Normal Blood Pressure 190/100 H Blood Pressure [Right Arm] Blood Pressure Mean 130 Blood Pressure Mean [Right Arm] Pulse Oximetry 97 94 98 Oxygen Delivery Method Room Air Room Air Oxygen Flow Rate Sepsis Recent Fever Within 48 Hours No Sepsis New/Unexplained Change in Mental Status No Sepsis Action Taken by Nursing No Action Required Oxygen Flow Rate - Titration Pulse Oximetry Post Tiitration 11/13/24 11:29 11/13/24 11:29 11/13/24 11:31 Temperature Temperature Source Pulse Rate 81 Pulse Rate [Apical] Pulse Rate from SpO2 Sensor 82 Pulse Rhythm [Apical] Respiratory Rate 13 Respiratory Effort / Characteristics Respiratory Depth Blood Pressure 171/114 H Blood Pressure [Right Arm] Blood Pressure Mean 141 Blood Pressure Mean [Right Arm] Pulse Oximetry 87 L 96 98 Oxygen Delivery Method Room Air Nasal Cannula Nasal Cannula Nasal Cannula Oxygen Flow Rate 2 2 Sepsis Recent Fever Within 48 Hours Sepsis New/Unexplained Change in Mental Status Sepsis Action Taken by Nursing Oxygen Flow Rate - Titration 2 Pulse Oximetry Post Tiitration 96 11/13/24 11:56 11/13/24 12:00 11/13/24 12:00 Temperature Temperature Source Pulse Rate 79 79 Pulse Rate [Apical] Pulse Rate from SpO2 Sensor 79 Pulse Rhythm [Apical] Respiratory Rate 14 Respiratory Effort / Characteristics Respiratory Depth Blood Pressure 157/91 H 157/91 H Blood Pressure [Right Arm] Blood Pressure Mean 113 126 Blood Pressure Mean [Right Arm] Pulse Oximetry 97 Oxygen Delivery Method Nasal Cannula Oxygen Flow Rate 2 Sepsis Recent Fever Within 48 Hours Sepsis New/Unexplained Change in Mental Status Sepsis Action Taken by Nursing Oxygen Flow Rate - Titration Pulse Oximetry Post Tiitration 11/13/24 12:00 11/13/24 12:00 11/13/24 12:00 Temperature Temperature Source Pulse Rate Pulse Rate [Apical] Pulse Rate from SpO2 Sensor Pulse Rhythm [Apical] Respiratory Rate Respiratory Effort / Characteristics Respiratory Depth Blood Pressure 157/91 H 157/91 H 157/91 H Blood Pressure [Right Arm] Blood Pressure Mean 126 126 126 Blood Pressure Mean [Right Arm] Pulse Oximetry Oxygen Delivery Method Oxygen Flow Rate Sepsis Recent Fever Within 48 Hours Sepsis New/Unexplained Change in Mental Status Sepsis Action Taken by Nursing Oxygen Flow Rate - Titration Pulse Oximetry Post Tiitration 11/13/24 12:36 11/13/24 13:00 Temperature Temperature Source Pulse Rate Pulse Rate [Apical] 78 Pulse Rate from SpO2 Sensor Pulse Rhythm [Apical] Regular Respiratory Rate 20 Respiratory Effort / Characteristics Respiratory Depth Normal Blood Pressure 155/100 H Blood Pressure [Right Arm] 164/88 H Blood Pressure Mean 110 Blood Pressure Mean [Right Arm] 113 Pulse Oximetry 92 Oxygen Delivery Method Nasal Cannula Oxygen Flow Rate 2 Sepsis Recent Fever Within 48 Hours Sepsis New/Unexplained Change in Mental Status Sepsis Action Taken by Nursing Oxygen Flow Rate - Titration Pulse Oximetry Post Tiitration Home Medications Current Medication List: was personally reviewed by me Laboratory Data Attestation: I reviewed the patient's lab results. 11/13/24 10:53 11/13/24 10:53 Lab Results 11/13/24 Range/Units 10:53 WBC 9.15 (4.8-10.8) K/ul RBC 4.46 (4.20-5.40) M/uL Hgb 12.9 (12.0-16.0) g/dl Hct 40.4 (37.0-47.0) % MCV 90.6 (80.0-100.0) fL MCH 28.9 (25.0-34.0) pg MCHC 31.9 L (32.0-36.0) g/dL RDW Std Deviation 43.2 (36.4-46.3) fL RDW Coeff of Zay 13.0 (11.5-14.5) % Plt Count 198 (130-400) K/uL MPV 10.5 (9.4-12.4) fL Immature Gran % (Auto) 0.4 % Neut % (Auto) 75.6 % Lymph % (Auto) 12.5 % Ector % (Auto) 10.6 % Eos % (Auto) 0.5 % Baso % (Auto) 0.4 % Neut # (Auto) 6.91 H (1.40-6.50) K/uL Lymph # (Auto) 1.14 L (1.20-3.40) K/uL Ector # (Auto) 0.97 H (0.11-0.59) K/uL Eos # (Auto) 0.05 (0.00-0.50) K/uL Baso # (Auto) 0.04 (0.00-0.20) K/uL Immature Gran # (Auto) 0.04 (0.01-0.20) K/uL Sodium 138 (136-145) mmol/L Potassium 3.8 (3.5-5.1) mmol/L Chloride 103 (98-107) mmol/L Carbon Dioxide 29 (21-32) mmol/L Anion Gap 6 (3-11) BUN 7 (6-23) mg/dl Creatinine 0.99 (0.6-1.2) mg/dl Est Cr Clr Drug Dosing 68.0 ml/min eGFR 63.28 BUN/Creatinine Ratio 7.1 L (10-20) Glucose 113 H (70-99(Fasting)) mg/dl Lactate 0.5 (0.4-2.0) mmol/L Calcium 9.3 (8.6-10.3) mg/dl Magnesium 2.1 (1.7-2.4) mg/dl Total Bilirubin 0.5 (0.2-1.0) mg/dl AST 11 L (13-39) U/L ALT 10 (7-52) U/L Alkaline Phosphatase 67 (34-104) U/L Total Protein 7.3 (6.0-8.3) gm/dl Albumin 3.9 (3.4-5.0) gm/dl Globulin 3.4 (2.5-4.0) gm/dl Albumin/Globulin Ratio 1.1 (0.9-2) TSH 0.855 (0.300-4.500) uIu/ml Adenovirus (PCR) Not Detected (NotDetected) B. pertussis DNA (PCR) Not Detected (NotDetected) B.parapertussis DNA PCR Not Detected (NotDetected) C. pneumoniae DNA (PCR) Not Detected (NotDetected) Coronavirus OC43 (PCR) Not Detected (NotDetected) Coronavirus HKU1 (PCR) Not Detected (NotDetected) Coronavirus 229E (PCR) Not Detected (NotDetected) SARS-CoV-2 (PCR) Not Detected (NotDetected) Coronavirus NL63 (PCR) Not Detected (NotDetected) Human Metapneumovir PCR Not Detected (NotDetected) Influenza Type A (PCR) Not Detected (NotDetected) Influenza Type B (PCR) Not Detected (NotDetected) M. pneumoniae (PCR) Not Detected (NotDetected) Parainfluenza 1 (PCR) Not Detected (NotDetected) Parainfluenza 2 (PCR) Not Detected (NotDetected) Parainfluenza 3 (PCR) Not Detected (NotDetected) Parainfluenza 4 (PCR) Not Detected (NotDetected) RSV (PCR) Not Detected (NotDetected) Entero/Rhino (PCR) Not Detected (NotDetected) Administered Medications Discontinued Medications Dexamethasone Sodium Phosphate (DexamethasonePf 10 Mg/Ml Vial) 10 mg IV NOW ONE Stop: 11/13/24 10:38 Last Admin: 11/13/24 10:59 Dose: 10 mg Documented By: TDM Diphenhydramine HCl (Diphenhydramine 50 Mg/Ml Vial) 12.5 mg IV NOW STA Stop: 11/13/24 12:14 Last Admin: 11/13/24 12:32 Dose: 12.5 mg Documented By: TDM Hydromorphone HCl (Hydromorphone Inj 0.5 Mg/0.5 Ml Syr) 0.5 mg IV NOW STA Stop: 11/13/24 10:35 Last Admin: 11/13/24 10:58 Dose: 0.5 mg Documented By: TDM Sodium Chloride (Nss) 1,000 mls @ 999 mls/hr IV .Q1H1M FERNY Stop: 11/13/24 11:45 Last Infusion: 11/13/24 12:13 Dose: Infused Documented By: Admin: 11/13/24 10:59 Dose: 999 mls/hr Documented By: TDM Ceftriaxone Sodium (Rocephin) 2,000 mg in 50 mls @ 100 mls/hr IV NOW STA Stop: 11/13/24 11:03 Last Infusion: 11/13/24 11:54 Dose: Infused Documented By: Admin: 11/13/24 11:15 Dose: 100 mls/hr Documented By: TDM Prochlorperazine 5 mg/ Syringe 5 mls @ 5 mls/min IV NOW STA Stop: 11/13/24 12:18 Last Admin: 11/13/24 12:33 Dose: 5 mls/min Documented By: TDM Ioversol (Optiray 320 100ml) 119 ml IV ONCE ONE Stop: 11/13/24 12:15 Last Admin: 11/13/24 12:14 Dose: 119 ml Documented By: DAK Ondansetron HCl (Ondansetron Inj 2 Mg/Ml 2 Ml Vial) 4 mg IV NOW STA Stop: 11/13/24 10:35 Last Admin: 11/13/24 10:58 Dose: 4 mg Documented By: TDM Imaging Data Radiologist's Impression: Chest X-Ray 11/13/24 10:34 EXAM: Radiograph of the Chest 1 View INDICATION: Weakness TECHNIQUE: Frontal view of the chest. COMPARISON: No relevant prior studies available. FINDINGS: Lungs and pleural spaces: No consolidation or pulmonary edema. No pleural effusion or pneumothorax. Heart: Shape and configuration within normal limits allowing for technique. Mediastinum: Normal contour. Bones/joints: No fracture, erosion or dislocation. Soft tissues: No abnormality noted. No radiopaque foreign body noted. Upper abdomen: No abnormality noted. IMPRESSION: No abnormality noted. ACT 112: N/A Electronically signed by Leslee Lua 11-13-2024 10:59 AM Head CTA 11/13/24 10:34 EXAM: CT Angiography Head and Neck With Intravenous Contrast INDICATION: Headache and neck pain. TECHNIQUE: [place] [facility] [place]/head and neck CT angiography protocol performed with intravenous contrast. Sagittal and coronal reformatted images were created and reviewed. This CT exam was performed using one or more of the following dose reduction techniques: automated exposure control, adjustment of the mA and/or kV according to patient size, and/or use of iterative reconstruction technique. MIP reconstructed images were created and reviewed. COMPARISON: None. FINDINGS: HEAD: Right anterior cerebral artery: No abnormality noted. No occlusion or significant stenosis. Anterior communicating artery is present. No aneurysm. Right middle cerebral artery: No abnormality noted. No occlusion or significant stenosis. No aneurysm. Right posterior cerebral artery: No abnormality noted. No occlusion or significant stenosis. No aneurysm. Right intracranial internal carotid artery: No abnormality noted. No significant stenosis. No dissection or occlusion. Right intracranial vertebral artery: No abnormality noted. No significant stenosis. No dissection or occlusion. Left anterior cerebral artery: No abnormality noted. No occlusion or significant stenosis. No aneurysm. Left middle cerebral artery: No abnormality noted. No occlusion or significant stenosis. No aneurysm. Left posterior cerebral artery: No abnormality noted. No occlusion or significant stenosis. No aneurysm. Left intracranial internal carotid artery: No abnormality noted. No significant stenosis. No dissection or occlusion. Left intracranial vertebral artery: No abnormality noted. No significant stenosis. No dissection or occlusion. Basilar artery: No abnormality noted. No occlusion or significant stenosis. No aneurysm. Other vasculature: No vascular malformation. NECK: Right common carotid artery: No abnormality noted. No significant stenosis. No dissection or occlusion. Right extracranial internal carotid artery: No abnormality noted. No significant stenosis. No dissection or occlusion. Right external carotid artery: No abnormality noted. No occlusion. Right extracranial vertebral artery: No abnormality noted. No significant stenosis. No dissection or occlusion. Left common carotid artery: No abnormality noted. No significant stenosis. No dissection or occlusion. Left extracranial internal carotid artery: No abnormality noted. No significant stenosis. No dissection or occlusion. Left external carotid artery: No abnormality noted. No occlusion. Left extracranial vertebral artery: No abnormality noted. No significant stenosis. No dissection or occlusion. Submandibular/parotid glands: The left submandibular gland is mildly inflamed. Lung apices: No significant abnormality noted. HEAD and NECK: Bones/joints: No significant abnormality. Soft tissues: Prominence of the tonsils left greater than right with some concretions noted. There is mild asymmetric thickening of the left nasopharyngeal wall. There is edema and asymmetric soft tissue density of the left supraglottic airway. There is mild proximal prevertebral swelling. No fluid collection. Lymph nodes: Reactive submandibular multicompartment cervical lymph nodes left greater than right. CAROTID STENOSIS REFERENCE USING NASCET CRITERIA: % ICA stenosis = (1 - narrowest ICA diameter/diameter of distal cervical ICA) x 100. Mild - <50% stenosis. Moderate - 50-69% stenosis. Severe - 70-94% stenosis. Near occlusion - 95-99% stenosis. Occluded - 100% stenosis. IMPRESSION: 1. No angiographic abnormality in the head or neck. 2. Bulky appearance of the tonsils left greater than right with asymmetric left lateral nasopharyngeal and supraglottic wall thickening. Correlate clinically for neoplasm. 3. Left submandibular sialoadenitis and reactive adenopathy. ACT 112: N/A Electronically signed by Leslee Lua 11-13-2024 12:45 PM Neck CTA 11/13/24 10:34 EXAM: CT Angiography Head and Neck With Intravenous Contrast INDICATION: Headache and neck pain. TECHNIQUE: [place] [facility] [place]/head and neck CT angiography protocol performed with intravenous contrast. Sagittal and coronal reformatted images were created and reviewed. This CT exam was performed using one or more of the following dose reduction techniques: automated exposure control, adjustment of the mA and/or kV according to patient size, and/or use of iterative reconstruction technique. MIP reconstructed images were created and reviewed. COMPARISON: None. FINDINGS: HEAD: Right anterior cerebral artery: No abnormality noted. No occlusion or significant stenosis. Anterior communicating artery is present. No aneurysm. Right middle cerebral artery: No abnormality noted. No occlusion or significant stenosis. No aneurysm. Right posterior cerebral artery: No abnormality noted. No occlusion or significant stenosis. No aneurysm. Right intracranial internal carotid artery: No abnormality noted. No significant stenosis. No dissection or occlusion. Right intracranial vertebral artery: No abnormality noted. No significant stenosis. No dissection or occlusion. Left anterior cerebral artery: No abnormality noted. No occlusion or significant stenosis. No aneurysm. Left middle cerebral artery: No abnormality noted. No occlusion or significant stenosis. No aneurysm. Left posterior cerebral artery: No abnormality noted. No occlusion or significant stenosis. No aneurysm. Left intracranial internal carotid artery: No abnormality noted. No significant stenosis. No dissection or occlusion. Left intracranial vertebral artery: No abnormality noted. No significant stenosis. No dissection or occlusion. Basilar artery: No abnormality noted. No occlusion or significant stenosis. No aneurysm. Other vasculature: No vascular malformation. NECK: Right common carotid artery: No abnormality noted. No significant stenosis. No dissection or occlusion. Right extracranial internal carotid artery: No abnormality noted. No significant stenosis. No dissection or occlusion. Right external carotid artery: No abnormality noted. No occlusion. Right extracranial vertebral artery: No abnormality noted. No significant stenosis. No dissection or occlusion. Left common carotid artery: No abnormality noted. No significant stenosis. No dissection or occlusion. Left extracranial internal carotid artery: No abnormality noted. No significant stenosis. No dissection or occlusion. Left external carotid artery: No abnormality noted. No occlusion. Left extracranial vertebral artery: No abnormality noted. No significant stenosis. No dissection or occlusion. Submandibular/parotid glands: The left submandibular gland is mildly inflamed. Lung apices: No significant abnormality noted. HEAD and NECK: Bones/joints: No significant abnormality. Soft tissues: Prominence of the tonsils left greater than right with some concretions noted. There is mild asymmetric thickening of the left nasopharyngeal wall. There is edema and asymmetric soft tissue density of the left supraglottic airway. There is mild proximal prevertebral swelling. No fluid collection. Lymph nodes: Reactive submandibular multicompartment cervical lymph nodes left greater than right. CAROTID STENOSIS REFERENCE USING NASCET CRITERIA: % ICA stenosis = (1 - narrowest ICA diameter/diameter of distal cervical ICA) x 100. Mild - <50% stenosis. Moderate - 50-69% stenosis. Severe - 70-94% stenosis. Near occlusion - 95-99% stenosis. Occluded - 100% stenosis. IMPRESSION: 1. No angiographic abnormality in the head or neck. 2. Bulky appearance of the tonsils left greater than right with asymmetric left lateral nasopharyngeal and supraglottic wall thickening. Correlate clinically for neoplasm. 3. Left submandibular sialoadenitis and reactive adenopathy. ACT 112: N/A Electronically signed by Leslee Lua 11-13-2024 12:[address] 11/13/24 10:45 EXAM: CT Head Without Intravenous Contrast INDICATION: Headache and neck pain TECHNIQUE: Axial computed tomography images of the head/brain without intravenous contrast. Sagittal and/or coronal reformats are provided. Sagittal and coronal reformatted images were created and reviewed. This CT exam was performed using one or more of the following dose reduction techniques: automated exposure control, adjustment of the mA and/or kV according to patient size, and/or use of iterative reconstruction technique. COMPARISON: No relevant prior studies available. FINDINGS: Limitations: None. Brain and extra-axial spaces: There is age appropriate cortical atrophy and chronic ischemic periventricular white matter hypodensity. No acute infarct, hemorrhage or mass noted. Bones/joints: No acute changes. Soft tissues: No significant abnormality noted. Vasculature: No acute abnormality noted. Sinuses: No layering fluid in the visualized portions of the paranasal sinuses. Mastoid air cells: No mastoid effusion. Orbits: No significant abnormality noted. IMPRESSION: Mild atrophy. No acute changes. ACT 112: N/A Electronically signed by Leslee Lua 11-13-2024 12:45 PM Discharge Plan Visit Data Chief Complaint: Head Pain Stated Complaint: THROBBING PAIN IN HEAD/THROAT ED Provider: Juanjo Walsh Discharge Problem: Acute tonsillitis, Headache, Sialadenitis, Failure of outpatient treatment Patient Disposition: Admitted As Inpatient Condition: Fair Forms Stand Alone Forms: [facility] [employer] Prescriptions Prescriptions: No Action cholecalciferol (vitamin D3) [Vitamin D3] 25 mcg (1,000 unit) capsule 1,000 units PO DAILY Qty: 30 5RF (DME) CPAP Supplies Misc See Rx Instructions .Route Qty: 1 12RF Rx Instructions: headgear levothyroxine 112 mcg tablet 112 mcg PO DAILY Qty: 90 3RF bupropion HCl 300 mg tablet extended release 24 hr 300 mg PO QAM Qty: 90 3RF multivitamin tablet 1 tab PO DAILY Qty: 30 0RF aspirin 81 mg tablet 81 mg PO DAILY flu vacc [id number](65yr up)-PF 180 mcg/0.5 mL syringe 0.5 ml IM ONCE Qty: 0.5 0RF sertraline 25 mg tablet 25 mg PO DAILY Qty: 30 2RF famotidine 20 mg tablet 20 mg PO DAILY Qty: 30 2RF trazodone 50 mg tablet 50 - 100 mg PO HS Rx Instructions: 1-2 tab orally QHS; Referrals Referrals: Nayeli Elizondo CRNP [Primary Care Provider] - Discharge Problem: Acute tonsillitis Qualifiers: Pharyngitis/tonsillitis etiology: unspecified etiology Qualified Code(s): J - Acute tonsillitis, unspecified Headache Qualifiers: Headache type: unspecified Headache chronicity pattern: unspecified pattern I ntractability: intractable Qualified Code(s): R51.9 - Headache, unspecified
[2024-11-13] MEDS: HYDROmorphone INJ 0.5 MG/0.5 ML SYR IV STA ×2 (10:58→15:03)
[2024-11-13] MEDS: ONDANSETRON INJ 2 MG/ML 2 ML VIAL IV STA (10:58)
[2024-11-13] MEDS: SODIUM CHLORIDE 0.9% 1,000 ML IV SCH (10:59)
[2024-11-13] MEDS: dexAMETHasone**PF** 10 MG/ML VIAL IV ONE (10:59)
--- NOTE | 2024-11-13 11:00 | XRay Report ---
EXAM: Radiograph of the Chest 1 View INDICATION: Weakness TECHNIQUE: Frontal view of the chest. COMPARISON: No relevant prior studies available. FINDINGS: Lungs and pleural spaces: No consolidation or pulmonary edema. No pleural effusion or pneumothorax. Heart: Shape and configuration within normal limits allowing for technique. Mediastinum: Normal contour. Bones/joints: No fracture, erosion or dislocation. Soft tissues: No abnormality noted. No radiopaque foreign body noted. Upper abdomen: No abnormality noted. IMPRESSION: No abnormality noted. ACT 112: N/A Electronically signed by Leslee Lua 11-13-2024 10:59 AM
[2024-11-13 11:12] LABS: Hematocrit (blood only) 40.4 % (37.0-47.0); Hemoglobin 12.9 g/dl (12.0-16.0); Immature Granulocytes # (auto) 0.04 K/uL (0.01-0.20); Immature Granulocytes % (auto) 0.4 %; Mean Corpuscular Hemoglobin 28.9 pg (25.0-34.0); Mean Corpuscular Volume 90.6 fL (80.0-100.0); Platelet Count 198 K/uL (130-400); RDW Standard Deviation 43.2 fL (36.4-46.3); Red Blood Count 4.46 M/uL (4.20-5.40); White Blood Count 9.15 K/ul (4.8-10.8)
[2024-11-13] MEDS: cefTRIAXone SODIUM 2,000 MG/50 ML BAG IV STA (11:15)
[2024-11-13 11:30] LABS: Alanine Aminotransferase 10.0 U/L (7-52); Albumin Globulin Ratio 1.1 (0.9-2); Albumin Level 3.9 gm/dl (3.4-5.0); Alkaline Phosphatase 67.0 U/L (34-104); Anion Gap 6.0 (3-11); Bilirubin,Total 0.5 mg/dl (0.2-1.0); Blood Urea Nitrogen 7.0 mg/dl (6-23); Calcium 9.3 mg/dl (8.6-10.3); Carbon Dioxide 29.0 mmol/L (21-32); Chloride 103.0 mmol/L (98-107); Creatinine Clr Calc Pharmacy 68.0 ml/min; Globulin 3.4 gm/dl (2.5-4.0); Glucose 113.0 mg/dl (70-99(Fasting)); Magnesium 2.1 mg/dl (1.7-2.4); Potassium 3.8 mmol/L (3.5-5.1); Sodium 138.0 mmol/L (136-145); Total Protein 7.3 gm/dl (6.0-8.3)
[2024-11-13 11:44] LABS: Thyroid Stimulating Hormone 0.855 uIu/ml (0.300-4.500)
[2024-11-13 12:11] LABS: Chlamydia pneumoniae PCR Not Detected (NotDetected); Coronavirus 229E PCR Not Detected (NotDetected); Coronavirus CoV-2 (COVID19)PCR Not Detected (NotDetected); Coronavirus HKU1 PCR Not Detected (NotDetected); Coronavirus NL63 PCR Not Detected (NotDetected); Coronavirus OC43PCR Not Detected (NotDetected); Human Metapneumovirus PCR Not Detected (NotDetected); Parainfluenza Virus 1 PCR Not Detected (NotDetected); Parainfluenza Virus 2 PCR Not Detected (NotDetected); Parainfluenza Virus 3 PCR Not Detected (NotDetected); Parainfluenza Virus 4 PCR Not Detected (NotDetected); Respiratory Syncytial VirusPCR Not Detected (NotDetected); Rhinovirus/Enterovirus PCR Not Detected (NotDetected)
[2024-11-13] MEDS ORDERED: PROCHLORPERAZINE 5 MG in SYRINGE 8 ML IV ONE (12:13)
[2024-11-13] MEDS: OPTIRAY 320 100ml IV ONE (12:14)
[2024-11-13] MEDS: diphenhydrAMINE 50 MG/ML VIAL IV STA (12:32)
[2024-11-13] MEDS: PROCHLORPERAZINE 5 MG in SYRINGE 4 ML IV STA (12:33)
--- NOTE | 2024-11-13 12:45 | CT Scan Report ---
EXAM: CT Head Without Intravenous Contrast INDICATION: Headache and neck pain TECHNIQUE: Axial computed tomography images of the head/brain without intravenous contrast. Sagittal and/or coronal reformats are provided. Sagittal and coronal reformatted images were created and reviewed. This CT exam was performed using one or more of the following dose reduction techniques: automated exposure control, adjustment of the mA and/or kV according to patient size, and/or use of iterative reconstruction technique. COMPARISON: No relevant prior studies available. FINDINGS: Limitations: None. Brain and extra-axial spaces: There is age appropriate cortical atrophy and chronic ischemic periventricular white matter hypodensity. No acute infarct, hemorrhage or mass noted. Bones/joints: No acute changes. Soft tissues: No significant abnormality noted. Vasculature: No acute abnormality noted. Sinuses: No layering fluid in the visualized portions of the paranasal sinuses. Mastoid air cells: No mastoid effusion. Orbits: No significant abnormality noted. IMPRESSION: Mild atrophy. No acute changes. ACT 112: N/A Electronically signed by Leslee Lua 11-13-2024 12:45 PM
--- NOTE | 2024-11-13 12:54 | CT Scan Report ---
EXAM: CT Angiography Head and Neck With Intravenous Contrast INDICATION: Headache and neck pain. TECHNIQUE: [place] [facility] [place]/head and neck CT angiography protocol performed with intravenous contrast. Sagittal and coronal reformatted images were created and reviewed. This CT exam was performed using one or more of the following dose reduction techniques: automated exposure control, adjustment of the mA and/or kV according to patient size, and/or use of iterative reconstruction technique. MIP reconstructed images were created and reviewed. COMPARISON: None. FINDINGS: HEAD: Right anterior cerebral artery: No abnormality noted. No occlusion or significant stenosis. Anterior communicating artery is present. No aneurysm. Right middle cerebral artery: No abnormality noted. No occlusion or significant stenosis. No aneurysm. Right posterior cerebral artery: No abnormality noted. No occlusion or significant stenosis. No aneurysm. Right intracranial internal carotid artery: No abnormality noted. No significant stenosis. No dissection or occlusion. Right intracranial vertebral artery: No abnormality noted. No significant stenosis. No dissection or occlusion. Left anterior cerebral artery: No abnormality noted. No occlusion or significant stenosis. No aneurysm. Left middle cerebral artery: No abnormality noted. No occlusion or significant stenosis. No aneurysm. Left posterior cerebral artery: No abnormality noted. No occlusion or significant stenosis. No aneurysm. Left intracranial internal carotid artery: No abnormality noted. No significant stenosis. No dissection or occlusion. Left intracranial vertebral artery: No abnormality noted. No significant stenosis. No dissection or occlusion. Basilar artery: No abnormality noted. No occlusion or significant stenosis. No aneurysm. Other vasculature: No vascular malformation. NECK: Right common carotid artery: No abnormality noted. No significant stenosis. No dissection or occlusion. Right extracranial internal carotid artery: No abnormality noted. No significant stenosis. No dissection or occlusion. Right external carotid artery: No abnormality noted. No occlusion. Right extracranial vertebral artery: No abnormality noted. No significant stenosis. No dissection or occlusion. Left common carotid artery: No abnormality noted. No significant stenosis. No dissection or occlusion. Left extracranial internal carotid artery: No abnormality noted. No significant stenosis. No dissection or occlusion. Left external carotid artery: No abnormality noted. No occlusion. Left extracranial vertebral artery: No abnormality noted. No significant stenosis. No dissection or occlusion. Submandibular/parotid glands: The left submandibular gland is mildly inflamed. Lung apices: No significant abnormality noted. HEAD and NECK: Bones/joints: No significant abnormality. Soft tissues: Prominence of the tonsils left greater than right with some concretions noted. There is mild asymmetric thickening of the left nasopharyngeal wall. There is edema and asymmetric soft tissue density of the left supraglottic airway. There is mild proximal prevertebral swelling. No fluid collection. Lymph nodes: Reactive submandibular multicompartment cervical lymph nodes left greater than right. CAROTID STENOSIS REFERENCE USING NASCET CRITERIA: % ICA stenosis = (1 - narrowest ICA diameter/diameter of distal cervical ICA) x 100. Mild - <50% stenosis. Moderate - 50-69% stenosis. Severe - 70-94% stenosis. Near occlusion - 95-99% stenosis. Occluded - 100% stenosis. IMPRESSION: 1. No angiographic abnormality in the head or neck. 2. Bulky appearance of the tonsils left greater than right with asymmetric left lateral nasopharyngeal and supraglottic wall thickening. Correlate clinically for neoplasm. 3. Left submandibular sialoadenitis and reactive adenopathy. ACT 112: N/A Electronically signed by Leslee Lua 11-13-2024 12:45 PM
[2024-11-13] MEDS ORDERED: POLYETHYLENE (MIRALAX) 17 GM PACK PO PRN (14:35)
[2024-11-13] MEDS ORDERED: MELATONIN 3 MG TAB PO PRN (14:35)
[2024-11-13] MEDS ORDERED: MAGNESIUM HYDROXIDE SUSP 30 ML UDC PO PRN (14:35)
[2024-11-13] MEDS ORDERED: ALUMINUM/MAGNESIUM SUSP 30 ML UDC PO PRN (14:35)
--- NOTE | 2024-11-13 14:57 | History & Physical Report ---
Date of Service November 13, 2024 Assessment & Plan (1) Acute tonsillitis: (2) Headache: (3) Sialadenitis: (4) Failure of outpatient treatment: (5) Depression: (6) Irritable bowel syndrome (IBS): Plan #Tonsillitis #Headache Approximate 6 month history of intermittent stabbing facial pain/headache preceding acute onset typical tonsillitis type symptoms four days ago. Unsure if the two are related, although CT questions thickening along left nasopharyngeal wall and supraglottic area. Hemodynamically stable and afebrile, and no leukocytosis; no other symptoms consistent with URI and viral panel negative, including COVID. She feels better at the moment, and suspect improvement related to Decadron. No abscess noted on CT at [place] and no uvula deviation appreciated today - no indication for acute intervention at the moment. Discussed with family getting her feeling better with the Decadron, IV antibiotics until she can take PO - and once swelling is down will be better able to determine if this is a simple tonsillitis or if secondary to more sinister diagnosis. CT scan at [place] also mentioned Budd Chiari malformation; I do not think this is related to her headaches and suspect is incidental. PLAN Consult ENT Consider repeat CT in AM if indicated Blood cultures drawn in ED Throat culture collected (post Rocephin) Will add ESR/CRP to blood drawn prior to Decadron Full liquid diet if tolerated, NPO after MN as precaution #Hypothyroidism Clinically and biochemically euthyroid Continue home dose levothyroxine #GERD Continue famotidine #Depression/Insomnia Continue home medications History of Present Illness Chief Complaint: Throat Pain Primary Care Provider: LEXI Pugh 64-year-old female presents to the ED with a sore throat. Was initially seen at [place] ED earlier in the weekend where CT of the head showed a potential Chiari malformation but no acute intracranial bleeding and CT of the neck showed tonsillitis. Strep test was negative. She was discharged to home with Augmentin. No improvement and had difficulty swallowing; PCP directed her to ED today. Sore throat started on , and has been progressive since. Denies fever; denies any other URI symptoms. No known exposures/sick contacts. Also notes a headache, off and on for the last 6 months. Headache seems more frontal, intermittent, and stabbing. She saw her PCP late October noting dizziness and headache - imaging was in the works but she presented to the ED before it could be scheduled. She has photophobia, her headache is worse especially, if she tries to lean forward. Her left neck pain and swallowing is worse and she cannot really take anything in by mouth because of the discomfort. She thinks she may have had a fever, she definitely has some nausea. ED work up here shows normal CBC and BMP. Viral panel negative. CT head negative. CTA demonstrated bulky appearance of the tonsils left greater than right with asymmetric left lateral nasopharyngeal and supraglottic wall thickening. Correlate clinically for neoplasm. Patient received Decadron 10 mg x 1 and Rocephin 2g. She does feel somewhat better at present. Allergies Allergy/AdvReac Type Severity Reaction Status Date / Time cyclobenzaprine Allergy Unknown HIVES Verified 11/08/24 13:20 SWEATING Home Medications Medication Instructions Recorded Confirmed Type multivitamin 1 tab PO DAILY #30 tabs 11/23/18 11/13/24 Rx cholecalciferol (vitamin D3) 25 1,000 units PO DAILY #30 caps 05/04/19 11/13/24 Rx mcg (1,000 unit) capsule (Vitamin D3) CPAP Supplies #1 ea 08/11/22 11/08/24 Rx levothyroxine 112 mcg tablet 112 mcg PO DAILY #90 tabs 12/02/23 11/13/24 Rx bupropion HCl 300 mg 24 hr tablet, 300 mg PO QAM #90 tabs 09/12/24 11/13/24 Rx extended release aspirin 81 mg tablet 81 mg PO DAILY 09/26/24 11/13/24 History sertraline 25 mg tablet 25 mg PO DAILY #30 tabs 11/08/24 11/13/24 Rx famotidine 20 mg tablet 20 mg PO DAILY #30 tabs 11/09/24 11/13/24 Rx trazodone 50 mg tablet 50 - 100 mg PO HS 11/13/24 11/13/24 History Past Med/Surg History Problem List (Updated 11/13/24 @ 13:57 by Juanjo Walsh MD) Acute tonsillitis (Acute) Failure of outpatient treatment (Acute) Sialadenitis (Acute) Headache (Acute) Depression Irritable bowel syndrome (IBS) Lower abdominal pain Pain of right midfoot Right foot pain Knee pain, right Annual physical exam 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) (Acute) Severe obstructive sleep apnea (Acute) Familial hypercholesteremia (Acute) Chronic GERD (Acute) Allergic rhinitis (Acute) Hypothyroidism Vitamin D deficiency Prediabetes Adjustment reaction Abnormal weight gain (Acute) Chronic fatigue (Acute) Insomnia, persistent (Acute) DJD (degenerative joint disease) of knee (Acute 03/15/14) Left knee DJD Medical History Colon cancer screening High blood pressure Right-sided chest wall pain Encounter for mammogram to establish baseline mammogram Flu-like symptoms Pharyngitis Pharyngitis Open wound of right arm with tendon injury Overactive bladder Surgical History History of vaginal surgery History of tubal ligation History of hysterectomy Hx of knee surgery History of delivery Family History Father Bipolar disorder Bone cancer Lung cancer Mother Diabetes Hypertension Denies family history of Ovarian cancer Prostate cancer Myocardial infarction Breast cancer Colorectal cancer Social History Smoking Status: Never smoker Second Hand Exposure: No; Do You Dip or Chew Tobacco: No; Hx Alcohol Use: Yes Hx Substance Use: No Preferred Language: Belarusian Communication Ability: Effective Visual Impairment: No Limitations Hearing Ability: Normal Beliefs That Will Affect Care: None marital status: Current Living Situation: Spouse current occupational status: employed current occupation: [employer] Feels Safe at Home: Yes Childhood Exposure to Second-Hand Smoke: Yes caffeine: Yes during the past year weight has: increased > 10 lbs Dental Care, Regularly: Yes Physical Activity Frequency: 3-4 Times per Week Seatbelt Use: sometimes Sunscreen Use: Yes Review of Systems Constitutional: + chills; no fever Eyes: as per Subjective / HPI Ear, Nose, Mouth, Throat: + dizziness, + facial pain, + sore throa t, + change in voice and + hoarseness; no epistaxis and no dental abscess Respiratory: no cough and no chest congestion Gastrointestinal: + nausea; no vomiting Physical Exam Constitutional: WD/WN, vitals as above Eyes: PERRL, conjunctivae normal, anicteric sclerae ENMT: Throat: uvula midline and + tonsil abnormality (B/L erythema, but mostly left sided. Left > right tonsillar adenopathy. ) Neck: Small amount of pus left tonsillar pillar (cultured) Left sided tender adenopathy. Respiratory: normal respiratory effort, lungs clear to auscultation Cardiovascular: RRR, no murmur, no edema Psychiatric: A+Ox3, euthymic affect Orientation: alert and oriented x 3 Speech: normal rate/rhythm/volume of speech (Slight hoarseness) Results & Data Results & Data Vital Signs (Past 12 Hours) Vital Signs Temp Pulse Pulse Resp BP BP Pulse Ox 11/13/24 13:00 78 20 164/88 H 92 11/13/24 12:36 155/100 H 11/13/24 12:00 157/91 H 11/13/24 12:00 157/91 H 11/13/24 12:00 157/91 H 11/13/24 12:00 157/91 H 11/13/24 12:00 79 14 157/91 H 97 11/13/24 11:56 79 11/13/24 11:31 81 13 171/114 H 98 11/13/24 11:29 96 11/13/24 11:29 87 L 11/13/24 11:24 81 13 98 11/13/24 10:34 78 15 94 11/13/24 10:03 36.8 C 84 22 190/100 H 97 O2 Del Method O2 Flow Rate 11/13/24 13:00 Nasal Cannula 2 11/13/24 12:36 11/13/24 12:00 11/13/24 12:00 11/13/24 12:00 11/13/24 12:00 11/13/24 12:00 Nasal Cannula 2 11/13/24 11:56 11/13/24 11:31 Nasal Cannula 2 11/13/24 11:29 Nasal Cannula 2 11/13/24 11:29 Room Air, Nasal Cannula 11/13/24 11:24 11/13/24 10:34 Room Air 11/13/24 10:03 Room Air Laboratory Results 11/13/24 Range/Units 10:53 WBC 9.15 (4.8-10.8) K/ul RBC 4.46 (4.20-5.40) M/uL Hgb 12.9 (12.0-16.0) g/dl Hct 40.4 (37.0-47.0) % MCV 90.6 (80.0-100.0) fL MCH 28.9 (25.0-34.0) pg MCHC 31.9 L (32.0-36.0) g/dL RDW Std Deviation 43.2 (36.4-46.3) fL RDW Coeff of Zay 13.0 (11.5-14.5) % Plt Count 198 (130-400) K/uL MPV 10.5 (9.4-12.4) fL Immature Gran % (Auto) 0.4 % Neut % (Auto) 75.6 % Lymph % (Auto) 12.5 % [place] % (Auto) 10.6 % Eos % (Auto) 0.5 % Baso % (Auto) 0.4 % Neut # (Auto) 6.91 H (1.40-6.50) K/uL Lymph # (Auto) 1.14 L (1.20-3.40) K/uL [place] # (Auto) 0.97 H (0.11-0.59) K/uL Eos # (Auto) 0.05 (0.00-0.50) K/uL Baso # (Auto) 0.04 (0.00-0.20) K/uL Immature Gran # (Auto) 0.04 (0.01-0.20) K/uL Sodium 138 (136-145) mmol/L Potassium 3.8 (3.5-5.1) mmol/L Chloride 103 (98-107) mmol/L Carbon Dioxide 29 (21-32) mmol/L Anion Gap 6 (3-11) BUN 7 (6-23) mg/dl Creatinine 0.99 (0.6-1.2) mg/dl Est Cr Clr Drug Dosing 68.0 ml/min eGFR 63.28 BUN/Creatinine Ratio 7.1 L (10-20) Glucose 113 H (70-99(Fasting)) mg/dl Lactate 0.5 (0.4-2.0) mmol/L Calcium 9.3 (8.6-10.3) mg/dl Magnesium 2.1 (1.7-2.4) mg/dl Total Bilirubin 0.5 (0.2-1.0) mg/dl AST 11 L (13-39) U/L ALT 10 (7-52) U/L Alkaline Phosphatase 67 (34-104) U/L Total Protein 7.3 (6.0-8.3) gm/dl Albumin 3.9 (3.4-5.0) gm/dl Globulin 3.4 (2.5-4.0) gm/dl Albumin/Globulin Ratio 1.1 (0.9-2) TSH 0.855 (0.300-4.500) uIu/ml Adenovirus (PCR) Not Detected (NotDetected) B. pertussis DNA (PCR) Not Detected (NotDetected) B.parapertussis DNA PCR Not Detected (NotDetected) C. pneumoniae DNA (PCR) Not Detected (NotDetected) Coronavirus OC43 (PCR) Not Detected (NotDetected) Coronavirus HKU1 (PCR) Not Detected (NotDetected) Coronavirus 229E (PCR) Not Detected (NotDetected) SARS-CoV-2 (PCR) Not Detected (NotDetected) Coronavirus NL63 (PCR) Not Detected (NotDetected) Human Metapneumovir PCR Not Detected (NotDetected) Influenza Type A (PCR) Not Detected (NotDetected) Influenza Type B (PCR) Not Detected (NotDetected) M. pneumoniae (PCR) Not Detected (NotDetected) Parainfluenza 1 (PCR) Not Detected (NotDetected) Parainfluenza 2 (PCR) Not Detected (NotDetected) Parainfluenza 3 (PCR) Not Detected (NotDetected) Parainfluenza 4 (PCR) Not Detected (NotDetected) RSV (PCR) Not Detected (NotDetected) Entero/Rhino (PCR) Not Detected (NotDetected) Code Status & VTE Plan Code Status Full (1) Acute tonsillitis Pharyngitis/tonsillitis etiology: unspecified etiology Qualified Code(s): J03.90 - Acute tonsillitis, unspecified (2) Headache Headache chronicity pattern: unspecified pattern Headache type: unspecified Intractability: intractable Qualified Code(s): R51.9 - Headache, unspecified (5) Depression Depression Type: unspecified Qualified Code(s): F32.A - Depression, unsp ecified (6) Irritable bowel syndrome (IBS) Irritable bowel syndrome type: unspecified Qualified Code(s): K58.9 - Irritable bowel syndrome, unspecified
[2024-11-13] MEDS: KETOROLAC TROMETHAMINE 15 MG/ML VIAL IV STA (15:03)
[2024-11-13 16:20] LABS: Appearance Urine Clear (Clear); Glucose Urine UA Negative (Negative)
[2024-11-13] MEDS ORDERED: HYDROmorphone INJ 0.5 MG/0.5 ML SYR IM PRN (17:02)
[2024-11-13] MEDS ORDERED: NON-FORMULARY MEDICATION (Cpap Supplies misc) SCH (21:00)
[2024-11-13] MEDS: ACETAMINOPHEN 325 MG TAB PO PRN (22:28)
[2024-11-14] MEDS: HYDROmorphone INJ 0.5 MG/0.5 ML SYR IV PRN (00:07)
[2024-11-14 06:56] LABS: Hematocrit (blood only) 40.6 % (37.0-47.0); Hemoglobin 12.8 g/dl (12.0-16.0); Mean Corpuscular Hemoglobin 28.6 pg (25.0-34.0); Mean Corpuscular Volume 90.8 fL (80.0-100.0); Platelet Count 227 K/uL (130-400); RDW Standard Deviation 42.1 fL (36.4-46.3); Red Blood Count 4.47 M/uL (4.20-5.40); White Blood Count 7.96 K/ul (4.8-10.8)
[2024-11-14 07:16] LABS: Anion Gap 6.0 (3-11); Blood Urea Nitrogen 9.0 mg/dl (6-23); Calcium 9.3 mg/dl (8.6-10.3); Carbon Dioxide 29.0 mmol/L (21-32); Chloride 105.0 mmol/L (98-107); Creatinine Clr Calc Pharmacy 78.3 ml/min; Glucose 116.0 mg/dl (70-99(Fasting)); Potassium 4.2 mmol/L (3.5-5.1); Sodium 140.0 mmol/L (136-145)
[2024-11-14] MEDS: ACETAMINOPHEN 1,000 MG/100 ML VIAL IV PRN (08:43)
--- NOTE | 2024-11-14 12:19 | ENT Consultation ---
Date of Consultation November 14, 2024 Assessment & Plan (1) Acute tonsillitis: (2) Peritonsillar cellulitis: Plan The patient has a history, imaging, and exam consistent with L tonsillar/peritonsillar/parapharyngeal inflammation. There is no drainable abscess on exam or imaging. She has had some improvement with IV abx and steroids, although remains symptomatic. -Unasyn -Decadron 10mg Q8H x3 doses -No need for NPO from ENT standpoint -If not improved within 48 hours, would repeat CT neck with contrast History of Present Illness Attending Physician: Max Bhandari History of Present Illness 64yF presenting with headache, sore throat. Reports 4-5 days progressive L sore throat, odynophagia, severe GEORGES. Previously seen at [facility] ED, CT neck per report with tonsillitis. Started on augmentin but returned to [facility] ED with worsening symptoms. CTA neck per my read with L peritonsillar, parapharyngeal inflammation with subcm hypodensity without clear rim enhancement. +L submandibular stranding. WBC wnl Some improvement on IV abx and with steroid administration. No otalgia, respiratory distress. Never smoker. Allergies Allergy/AdvReac Type Severity Reaction Status Date / Time cyclobenzaprine Allergy Unknown HIVES Verified 11/08/24 13:20 SWEATING Home Medications Medication Instructions Recorded Confirmed Type multivitamin 1 tab PO DAILY #30 tabs 11/23/18 11/13/24 Rx cholecalciferol (vitamin D3) 25 1,000 units PO DAILY #30 caps 05/04/19 11/13/24 Rx mcg (1,000 unit) capsule (Vitamin D3) CPAP Supplies #1 ea 08/11/22 11/08/24 Rx levothyroxine 112 mcg tablet 112 mcg PO DAILY #90 tabs 12/02/23 11/13/24 Rx bupropion HCl 300 mg 24 hr tablet, 300 mg PO QAM #90 tabs 09/12/24 11/13/24 Rx extended release aspirin 81 mg tablet 81 mg PO DAILY 09/26/24 11/13/24 History sertraline 25 mg tablet 25 mg PO DAILY #30 tabs 11/08/24 11/13/24 Rx famotidine 20 mg tablet 20 mg PO DAILY #30 tabs 11/09/24 11/13/24 Rx trazodone 50 mg tablet 50 - 100 mg PO HS 11/13/24 11/13/24 History amoxicillin 875 mg-potassium 1 tab PO BID 7 days #14 tabs 11/14/24 Rx clavulanate 125 mg tablet fenofibrate 54 mg tablet 54 mg PO DAILY #30 tabs 11/14/24 Rx Patient History Medical History Colon cancer screening High blood pressure Right-sided chest wall pain Encounter for mammogram to establish baseline mammogram Flu-like symptoms Pharyngitis Pharyngitis Open wound of right arm with tendon injury Overactive bladder Surgical History History of vaginal surgery partial vaginectomy History of tubal ligation History of hysterectomy Hx of knee surgery History of delivery Family History Father Bipolar disorder Bone cancer Lung cancer Mother Diabetes Hypertension Denies family history of Ovarian cancer Prostate cancer Myocardial infarction Breast cancer Colorectal cancer Social History Smoking Status: Never smoker Second Hand Exposure: No; Do You Dip or Chew Tobacco: No; Hx Alcohol Use: Yes Hx Substance Use: No Preferred Language: Eritrean Communication Ability: Effective Visual Impairment: No Limitations Hearing Ability: Normal 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 Beliefs That Will Affect Care: None marital status: Current Living Situation: Spouse current occupational status: employed current occupation: [employer] Feels Safe at Home: Yes Safety Concerns: Feels Safe At This Time Childhood Exposure to Second-Hand Smoke: Yes caffeine: Yes during the past year weight has: increased > 10 lbs Dental Care, Regularly: Yes Physical Activity Frequency: 3-4 Times per Week Seatbelt Use: sometimes Sunscreen Use: Yes Assistive Devices: None Review of Systems Review of Systems: A 10-point ROS is negative except as noted above Physical Exam Physical Exam: General: No acute distress, nonlabored respirations Face: normal facial motion Eyes: Extraocular motion is intact. Normal sclera and conjunctiva Ears: External ears normal Nose: no external deformity, nares patent. No rhinorrhea or epistaxis. Mild septal deviation left Oral cavity: clear, no trismus. Edentulous maxilla. FOM soft Oropharynx: 1-2+ tonsils bilaterally, mild fullness L soft palate without uvular deviation or erythema Neck: soft, 1.5cm L SMG which is tender to palpation Procedure: Flexible fiberoptic laryngoscopy Indication: throat pain Details: Following the topical application of afrin and lidocaine, the flexible laryngoscope was inserted into the nasal cavity. The septum, turbinates, and nasal mucosa were as described above. The nasopharynx was normal. The palatine tonsils were as described above. The base of tongue and vallecula were normal. There was mild fullness of the left lateral pharyngeal wall to the level of the epiglottis. The epiglottis, bilateral arytenoids, and bilateral aryepiglottic folds, and bilateral false vocal folds were normal. The true vocal folds were normal without masses or lesions. There was normal mobility of the true vocal folds bilaterally. The bilateral pyriform sinuses and postcricoid space was normal. There was no pooling of secretions. No aspiration or penetration was visualized. The patient tolerated the procedure well. Results & Data Vital Signs (Past 12 Hours) Vital Signs Temp Pulse Resp BP Pulse Ox O2 Del Method 11/14/24 08:47 Room Air 11/14/24 07:47 36.7 C 72 18 132/76 97 Room Air PG Care Time/CCT Total # of Minutes Spent Total Time Spent with Patient: Total time spent is greater than 50% in coordination of care (as documented) at patient's floor/unit and/or counseling patient: Coding Level of Care Code 78135 IN/OBS CONSULT LVL 4,60M (25 - SIGNIFICANT, SEPARATELY IDENTIFIABLE ) Diagnoses Acute tonsillitis J03.90 Pharyngitis/tonsillitis etiology: unspecified etiology Peritonsillar cellulitis J36 CPT Codes LARYNGOSCOPY DIAGNOSTIC FLEXIBLE - 65622 ([id number]) (1) Acute tonsillitis Pharyngitis/tonsillitis etiology: unspecified etiology Qualified Code(s): J03.90 - Acute tonsillitis, unspecified
[2024-11-14] MEDS: SODIUM CHLORIDE 0.9% 500 ML IV SCH (12:20)
[2024-11-14] MEDS: ONDANSETRON INJ 2 MG/ML 2 ML VIAL IV PRN (12:27)
[2024-11-14] MEDS: cefTRIAXone SODIUM 2,000 MG/50 ML BAG IV SCH (13:56)
[2024-11-14] MEDS: PROCHLORPERAZINE 5 MG in SYRINGE 4 ML IV ONE (14:33)
--- NOTE | 2024-11-14 14:57 | Electrocardiogram Report ---
Test Reason : Blood Pressure : */* mmHG Vent. Rate : 78 BPM Atrial Rate : 78 BPM P-R Int : 154 ms QRS Dur : 84 ms QT Int : 372 ms P-R-T Axes : 54 -19 22 degrees QTcB Int : 424 ms Normal sinus rhythm Minimal voltage criteria for LVH, may be normal variant ( R in aVL ) Borderline ECG When compared with ECG of 24-Apr-2017 12:16, No significant change was found Confirmed by Sarbjit Vidal ([id number]) on 11/14/2024 2:56:46 PM Referred By: REFERRED SELF Confirmed By: Sarbjit Vidal
--- NOTE | 2024-11-14 15:26 | Hospitalist Progress Note ---
Date of Service November 14, 2024 Assessment & Plan (1) Acute tonsillitis: (2) Headache: (3) Sialadenitis: (4) Failure of outpatient treatment: (5) Depression: (6) Irritable bowel syndrome (IBS): Plan #Tonsillitis | throbbing headache Approximate 6 month history of intermittent stabbing facial pain/headache preceding acute onset typical tonsillitis type symptoms four days ago. Unsure if the two are related, although CT questions thickening along left nasopharyngeal wall and supraglottic area. Hemodynamically stable and afebrile, and no leukocytosis; no other symptoms consistent with URI and viral panel negative, including COVID. She feels better at the moment, and suspect improvement related to Decadron. No abscess noted on CT at [facility] and no uvula deviation appreciated today - no indication for acute intervention at the moment. Discussed with family getting her feeling better with the Decadron, IV antibiotics until she can take PO - and once swelling is down will be better able to determine if this is a simple tonsillitis or if secondary to more sinister diagnosis. CT scan at [facility] also mentioned Budd Chiari malformation; I do not think this is related to her headaches and suspect is incidental. ENT consult appreciated Patient was scoped on 11/14 No indications for surgery Recommending Decadron 10 mg IV q8h x 3 doses Initiate Unasyn 3000 mg IV q6h Consider repeat CT in AM if no improvement Blood cultures with NGTD on 11/14 Throat culture collected (post Rocephin) Elevated ESR at 56 and CRP at 11.77 prior to Decadron being given; ?[facility] Full liquid diet if tolerated, and will plan to advance once swelling subsides with Decadron #Hypothyroidism Clinically and biochemically euthyroid Continue home dose levothyroxine #GERD Continue famotidine #Depression/Insomnia Continue home medications Disposition: Continue stay on [facility] Admission and Anticipated Discharge Date Admission Date: November 13, 2024 [address] Mrs. Nunez is glad report that her throat did well overnight. She reports it is much improved from Thursday, when she went to [facility]. Patient reports that she was seen it was found hospital and had a neck CT done. She provides radiologic impression from the support on her phone which notes "no tonsillar or peritonsillar collection; normal epiglottis. She was sent home from [place] on Augmentin, but her symptoms clinically worsen. Patient reports she tried eating some pudding and soup last night, and did okay with it; however she "does not think [she] could eat real food" this morning. While her throat is feeling better, her main concern at this time is her "pounding" headache. This was the original reason she came back to the hospital. No recent change in vision. No cough, sore throat, sneezing, or sinus drainage. No sick contacts. No prior history of mono, and she reports she is tested negative for strep multiple times in the past week. Overall, her main concerns are her headaches, and her throat/neck swelling on the left side > right side. ROS: Patient endorses pounding headache, sore throat, difficulty swallowing, and hoarse voice. Patient denies fever, cough, nasal congestion, sneezing, sinus drainage, tinnitus, changes in vision, chest pain, SOB, pleuritic CP, wheezing, abdominal pain, N/V/D, or changes in urinary bowel habits. Physical Exam Physical Exam: General: no acute distress; pleasant affect; non-toxic appearing; cooperative; SpO2 95% on RA HEEN: normocephalic, atraumatic; PERRLA; vision and hearing intact Throat: Airway patent; oral mucosa is coral pink; no erythema or exudates appreciated on the oropharynx; left tonsillar swelling appreciated Neck: supple; trachea midline; submandibular lymphadenopathy, as well as lymphadenopathy in the anterior cervical chains (L>R); left anterior neck is TTP and erythematous Skin: warm, dry without signs of tenting; no cyanosis; no rashes, bruising, lesions, or erythema noted CV: chest wall NTP; RRR; S1/S2 normal; no murmurs/rubs/gallops; pulses intact and symmetric at radial, DP, and PT Lungs: no acute respiratory distress; symmetrical chest wall expansion; clear breath sounds across all lung luna w/o adventitious sounds; no wheezing ABD: Soft, NTP; BS present; no rebound/guarding; no distention MSK: no tics or fasciculations; no edema noted in the LEs b/l, nonerythematous Neuro: A&Ox3; normal mood and affect; fluent speech; sensation intact and symmetric in the LEs b/l Results & Data Results & Data Vital Signs (Past 12 Hours) Vital Signs Temp Pulse Resp BP Pulse Ox O2 Del Method 11/14/24 15:12 36.7 C 78 18 143/85 H 95 Room Air 11/14/24 08:47 Room Air 11/14/24 07:47 36.7 C 72 18 132/76 97 Room Air PG Care Time/CCT Total # of Minutes Spent Total Time Spent with Patient: Total time spent is greater than 50% in coordination of care (as documented) at patient's floor/unit and/or counseling patient: Coding [place] [address] SUB INP/OBS CARE 2/35MIN Patient Type Established History Comprehensive Exam Comprehensive Medical Decision Making Moderate Complexity Diagnoses Acute tonsillitis J03.90 Pharyngitis/tonsillitis etiology: unspecified etiology Headache R51.9 Headache chronicity pattern: unspecified pattern Headache type: unspecified Intractability: intractable Sialadenitis K11.20 Failure of outpatient treatment Z78.9 Depression, unspecified depression type F32.A Depression Type: unspecified Irritable bowel syndrome, unspecified type K58.9 Irritable bowel syndrome type: unspecified (1) Acute tonsillitis Pharyngitis/tonsillitis etiology: unspecified etiology Qualified Code(s): J03.90 - Acute tonsillitis, unspecified (2) Headache Headache chronicity pattern: unspecified pattern Headache type: unspecified Intractability: intractable Qualified Code(s): R51.9 - Headache, unspecified (5) Depression Depression Type: unspecified Qualified Code(s): F32.A - Depression, unspecified (6) Irritable bowel syndrome (IBS) Irritable bowel syndrome type: unspecified Qualified Code(s): K58.9 - Ir ritable bowel syndrome, unspecified
[2024-11-14] MEDS ORDERED: dexAMETHasone**PF** 10 MG/ML VIAL IV SCH (15:30)
[2024-11-14] MEDS: LEVOTHYROXINE SODIUM 112 MCG TABLET PO SCH (16:14)
[2024-11-14] MEDS: SERTRALINE HCL 50 MG TABLET PO SCH (16:15)
[2024-11-14] MEDS: FAMOTIDINE 20 MG TAB PO SCH (16:24)
[2024-11-14] MEDS: dexAMETHasone 10 MG in SYRINGE 0 ML IV SCH (17:21)
[2024-11-14] MEDS: AMPICILLIN/SULBACTAM SOD 3,000 MG/100 ML BAG IV SCH (19:50)
[2024-11-14] MEDS ORDERED: PROCHLORPERAZINE 5 MG in SYRINGE 4 ML IV PRN (20:00)
[2024-11-15 07:37] LABS: Hematocrit (blood only) 40.8 % (37.0-47.0); Hemoglobin 13.5 g/dl (12.0-16.0); Mean Corpuscular Hemoglobin 29.7 pg (25.0-34.0); Mean Corpuscular Volume 89.7 fL (80.0-100.0); Platelet Count 240 K/uL (130-400); RDW Standard Deviation 40.5 fL (36.4-46.3); Red Blood Count 4.55 M/uL (4.20-5.40); White Blood Count 5.77 K/ul (4.8-10.8)
[2024-11-15 07:52] LABS: Anion Gap 7.0 (3-11); Blood Urea Nitrogen 12.0 mg/dl (6-23); Calcium 9.4 mg/dl (8.6-10.3); Carbon Dioxide 30.0 mmol/L (21-32); Chloride 103.0 mmol/L (98-107); Creatinine Clr Calc Pharmacy 83.1 ml/min; Glucose 154.0 mg/dl (70-99(Fasting)); Potassium 4.1 mmol/L (3.5-5.1); Sodium 140.0 mmol/L (136-145)
[2024-11-15 11:08] VITALS: PULSE 78; RESP 16
--- NOTE | 2024-11-15 11:37 | Discharge Summary ---
Discharge Summary Date of Service November 15, 2024 Principal Dx & Hospital Course #1 = Principal Diagnosis (1) Acute tonsillitis: (2) Headache: (3) Sialadenitis: (4) Failure of outpatient treatment: (5) Depression: (6) Irritable bowel syndrome (IBS): Plan #Tonsillitis | throbbing headache Approximate 6 month history of intermittent stabbing facial pain/headache preceding acute onset typical tonsillitis type symptoms x four days [employer]. Unsure if the two are related, although CT questions thickening along left nasopharyngeal wall and supraglottic area. Hemodynamically stable; no other symptoms consistent with URI and viral panel negative, including COVID. Improvement after receiving Decadron in the hospital. Related to Decadron. No abscess noted on CT at [place] and no uvula deviation appreciated over the course of hospital stay; airway patent. CT scan at [place] also mentioned Budd Chiari malformation, but do not think this is related to her headaches, and suspect it's incidental. ENT consult appreciated Patient underwent a flexible fiberoptic laryngoscopy on 11/14 No indications for surgery Decadron 10 mg IV q8h x 3 doses Unasyn 3000 mg IV q6h while in the hospital Consider repeat CT in AM if no improvement Blood cultures with NGTD after 48 hours Throat culture collected (post Rocephin) with NGTD Elevated ESR at 56 and CRP at 11.77 prior to Decadron being given Patient was advanced to a regular diet and reported full resolution of her throat pain/difficulty swallowing after being on Unasyn and Decadron Will plan to send patient home on the following prescriptions: Augmentin 875-125 mg p.o. tablets twice daily x 8 additional days to complete 10-day course Medrol Dosepak (methylprednisone 4 mg taper) #Severe, recurrent headaches One of the main reasons patient came in was for a severe, throbbing headache that patient described as a "ice pick" in her left jew Decadron alleviated her symptoms No prior history of giant cell arteritis, however it is difficult to assess with elevated ESR and CRP in the setting of tonsillitis Recommend obtaining an outpatient CRP after patient's tonsillitis resolves; perhaps prior to patient's transitional care appointment Additionally, while patient did not have red flag symptoms for headache (no diplopia, changes in vision, or headaches that wake her from sleep) they were quite severe in the hospital, and she did have vomiting Unclear if this vomiting was secondary to pain medications + or liquid diet (patient had soup which she was not usually accustomed to) However, I did recommend a brain MRI with and without contrast to assess for more sinister etiology Patient declined MRI while in the hospital; she does not want to do it at this time due to "everything going on"; would be open to having it done at a later date, or as an outpatient Recommend that the patient follow-up with neurology as an outpatient for headache management #Hypothyroidism Clinically and biochemically euthyroid Continue home dose levothyroxine #GERD Continue famotidine #Depression/Insomnia Continue home medications Day of discharge 11/15: Mrs. Nunez is happy to report that she feels "90% better" this morning. Yesterday evening, she had a severe, throbbing headache that was mainly located at the left jew. She also tried to eat some tomato soup, but began dry heaving/vomiting after only 2-3 sips. She believes that she was "n.p.o. for too long", and this might have contributed to her vomiting. She is unsure if the pain medications contributed to her nausea, as she received the same pain medication in the ER and did not feel nauseous. However, she was able to keep down Powerade and Jell-O last night just before bed. She feels that her throat pain has largely subsided. She no longer has difficulty swallowing or pain with swallowing. In regard to her headaches, she relays the following history of severe headaches intermittently over the past 3 years:Headaches began shortly after her mother in 2021, and she originally thought that there could be a component of headaches from emotional trauma. These headaches can go for months at a time without occurring, but when they occur, they last for 1 to 2 days at a time. She compares them to a "stabbing ice pick" in her head. She denies several red flag symptoms: No diplopia, photophobia, changes in vision, unilateral vision loss, confusion, or headaches that awaken her from sleep. No prodrome or aura prior to headaches coming on, but she believes they might be triggered by acute infection. For instance, her last severe headache was in February 2024 after she developed a UTI. She reports that she had to wear sunglasses for several days at the time due to light sensitivity; note: No light sensitivity during her current headache. Patient reports her PCP was planning to set her up with a brain MRI outpatient, but this has not been scheduled yet. When asked if she would be open to having one done in the hospital today, she declines at this time. She wants to focus on getting better with her tonsillitis, and feels that her headache has resolved at this time. She has concerns about being in an MRI machine with her nausea and vomiting. She is open to having a MRI done at a later date. ROS: Patient denies fever, headache (resolved), difficulty swallowing (resolved), changes in vision, tinnitus, chest pain, chest palpitations, SOB, cough, abdominal pain, nausea/vomiting (resolved), diarrhea, burning with urination, or changes in urinary or bowel habits. Disposition: Discharge home Notes For Next Care Provider Patient hospitalized for acute tonsillitis. Imaging taken at ER in [place] on 11/11 did not reveal fluid collection to suggest abscess. Patient underwent a flexible laryngoscope with ENT on 11/14 (no indications for acute intervention or surgery). Patient's symptoms improved receiving IV Decadron and Unasyn in the hospital. Will plan to discharge patient on Medrol Dosepak as well as Augmentin x 8 additional days. Additionally, patient has had intermittent/severe headaches over the past 3 years. However she had a severe headache while in the hospital as well. She describes as an "icepick" stabbing into her left jew. While she had an elevated CRP and ESR in the hospital, this may have been secondary to her acute tonsillitis. Still, would recommend follow-up CRP once her inflammation in the tonsils resolve to rule out other possible etiologies such as giant cell arteritis. She would also benefit from obtaining a brain MRI with and without contrast to rule out more sinister etiology. We also recommend that she follow- up with neurology as an outpatient for headache management. She can follow-up with Dr. Maldonado office (ENT) in the next 2 weeks. Please reach out with any questions or concerns. Admission HPI Per Admitting Provider 64-year-old female presents to the ED with a sore throat. Was initially seen at [facility] ED earlier in the weekend where CT of the head showed a potential Chiari malformation but no acute intracranial bleeding and CT of the neck showed tonsillitis. Strep test was negative. She was discharged to home with Augmentin. No improvement and had difficulty swallowing; PCP directed her to ED today. Sore throat started on , and has been progressive since. Denies fever; denies any other URI symptoms. No known exposures/sick contacts. Also notes a headache, off and on for the last 6 months. Headache seems more frontal, intermittent, and stabbing. She saw her PCP late October noting dizziness and headache - imaging was in the works but she presented to the ED before it could be scheduled. She has photophobia, her headache is worse especially, if she tries to lean forward. Her left neck pain and swallowing is worse and she cannot really take anything in by mouth because of the discomfort. She thinks she may have had a fever, she definitely has some nausea. ED work up here shows normal CBC and BMP. Viral panel negative. CT head negative. CTA demonstrated bulky appearance of the tonsils left greater than right with asymmetric left lateral nasopharyngeal and supraglottic wall thickening. Correlate clinically for neoplasm. Patient received Decadron 10 mg x 1 and Rocephin 2g. She does feel somewhat better at present. Admission Exam Per Admitting Provider Constitutional: WD/WN, vitals as above Eyes: PERRL, conjunctivae normal, anicteric sclerae ENMT: Throat: uvula midline and + tonsil abnormality (B/L erythema, but mostly left sided. Left > right tonsillar adenopathy. ) Neck: Small amount of pus left tonsillar pillar (cultured) Left sided tender adenopathy. Respiratory: normal respiratory effort, lungs clear to auscultation Cardiovascular: RRR, no murmur, no edema Psychiatric: A+Ox3, euthymic affect Orientation: alert and oriented x 3 Spee ch: normal rate/rhythm/volume of speech (Slight hoarseness) Discharge Exam General: no acute distress; pleasant affect; hoarseness has resolved; non-toxic appearing; cooperative; SpO2 94% on RA HEEN: normocephalic, atraumatic; PERRLA; vision and hearing intact Throat: Airway patent; oral mucosa is coral pink; uvula is midline without deviation; no erythema or exudates appreciated on the oropharynx; mild left tonsillar swelling appreciated Neck: supple; trachea midline; submandibular lymphadenopathy, as well as lymphadenopathy in the anterior cervical chains (L>R); left anterior neck is still mildly TTP Skin: warm, dry without signs of tenting; no cyanosis; no rashes, bruising, lesions, or erythema noted CV: chest wall NTP; RRR; S1/S2 normal; no murmurs/rubs/gallops; pulses intact and symmetric at radial, DP, and PT Lungs: no acute respiratory distress; symmetrical chest wall expansion; clear breath sounds across all lung luna w/o adventitious sounds; no wheezing ABD: Soft, NTP; BS present; no rebound/guarding; no distention MSK: no tics or fasciculations; no edema noted in the LEs b/l, nonerythematous Neuro: A&Ox3; normal mood and affect; fluent speech; sensation intact and symmetric in the LEs b/l Discharge Plan Discharge Items Patient Disposition: Home - Self-Care Reason For Visit: ACUTE TONSILLITIS Discharge Diagnosis: Acute tonsillitis, headaches Condition on Discharge: Fair Activity: As commented below Activity Comment: Gradually increase previous activity as tolerated Non-emergency contact: Primary Care Provider Call non-emergency contact if: you have any medication questions, your symptoms worsen, your pain is not controlled, your pain is worsening and you have a fever Follow-up/Referrals: Nayeli Elizondo CRNP [Primary Care Provider] - 11/21/24 11:30 am Diet: Regular Addtl Attending Provider Instructions: You were hospitalized at [facility] from 11/13 - 11/15 due to worsening throat pain/swelling, as well as intermittent headache. On arrival, you were diagnosed with a left-sided tonsillitis. You were seen by our ears nose and throat provider (Dr. Maldonado), who did not feel that there was any need for surgical intervention at this time. Instead, you were treated with IV steroids and antibiotics, and reported that your throat swelling and pain gradually subsided. Given your vitals are currently stable, you are tolerating a solid diet, and you did not have an elevated white blood cell count to indicate signs of severe infection, we feel that you are safe to return home at this time. Please plan to follow-up with your PCP in the next 7 to 10 days for a transitional care appointment. Prior to this appointment, please plan to have blood work drawn to assess your "CRP" level. This is a nonspecific blood marker for inflammation in the body. It was elevated while you are here in the hospital, and we would like to see if it remains elevated after your tonsillitis resolves. New prescriptions on discharge: - Medrol Dosepak Note: This is a steroid taper; methylprednisolone 4 mg tablets Please follow instructions on the packaging and take as directed - Augmentin [id number] mg tablets twice daily x 8 additional days Please plan to follow-up with ENT (Dr. Maldonado) in 2 weeks as an outpatient. In regard to your headaches, we did discuss having a brain MRI performed in the hospital to rule out more sinister etiology; however he declined this at time of discharge. We strongly recommend that you follow-up with neurology as an outpatient for headache management. We also recommend that you speak with your PCP about setting out a brain MRI as an outpatient. If develop any new or worsening symptoms, such as intractable headache, nausea, vomiting, fevers, chills, throat swelling, or difficulty breathing, please return to the Emergency Department immediately. It was a pleasure taking care of you. Please reach out any questions concerns. Sincerely, The Hospital medicine team at [facility] Pending Studies at Discharge: Yes (Blood cultures) Stand-Alone Forms: [facility] Medications and DC Order Prescriptions: New amoxicillin-pot clavulanate 875-125 mg tablet 1 tab PO BID 8 Days Qty: 16 0RF Rx Instructions: Take 1 tablet by mouth twice daily methylprednisolone [Medrol (Mio)] 4 mg tablets,dose pack 4 mg PO QID Qty: 21 0RF Rx Instructions: Steroid taper; please take as directed per Rx instructions Continued cholecalciferol (vitamin D3) [Vitamin D3] 25 mcg (1,000 unit) capsule 1,000 units PO DAILY Qty: 30 5RF (DME) CPAP Supplies Misc See Rx Instructions .Route Qty: 1 12RF Rx Instructions: headgear levothyroxine 112 mcg tablet 112 mcg PO DAILY Qty: 90 3RF bupropion HCl 300 mg tablet extended release 24 hr 300 mg PO QAM Qty: 90 3RF fenofibrate 54 mg tablet 54 mg PO DAILY Qty: 30 2RF multivitamin tablet 1 tab PO DAILY Qty: 30 0RF aspirin 81 mg tablet 81 mg PO DAILY flu vacc [id number](65yr up)-PF 180 mcg/0.5 mL syringe 0.5 ml IM ONCE Qty: 0.5 0RF sertraline 25 mg tablet 25 mg PO DAILY Qty: 30 2RF famotidine 20 mg tablet 20 mg PO DAILY Qty: 30 2RF trazodone 50 mg tablet 50 - 100 mg PO HS Rx Instructions: 1-2 tab orally QHS; Discontinued amoxicillin-pot clavulanate 875-125 mg tablet 1 tab PO BID 7 Days Qty: 14 0RF Rx Instructions: [facility] ER 11/11-11/12/24 Discharge Orders: Discharge Order (Routine); Ordered 11/15/24 Ordered By: Jai Hemphill/Other Patient Handouts: Tonsillitis in Adults Admission Data Admit Date/Time: 11/14/24 16:45 Attending Provider: Max Bhandari Admit Provider: Sera Clancy Primary Care Provider: Nayeli Elizondo V. Other Providers: Jacqueline Gore; Ricky Richmond; Brandon Maldonado Hospital Stay Data Consultations 11/13/24 13:10 ED Decision to Admit Stat 11/13/24 13:37 ED Decision to Admit Stat 11/13/24 14:35 Consult Otolaryngology (Head and Neck) Routine Diagnostic Imagining Performed 11/13/24 10:34 CT angio head w con Stat CT angio neck with con Stat 11/13/24 10:45 CT head/brain wo con Stat Discharge Instructions Given to Patient (Per Discharging Provider) You were hospitalized at [facility] from 11/13 - 11/15 due to worsening throat pain/swelling, as well as intermittent headache. On arrival, you were diagnosed with a left-sided tonsillitis. You were seen by our ears nose and throat provider (Dr. Maldonado), who did not feel that there was any need for surgical intervention at this time. Instead, you were treated with IV steroids and antibiotics, and reported that your throat swelling and pain gradually subsided. Given your vitals are currently stable, you are tolerating a solid diet, and you did not have an elevated white blood cell count to indicate signs of severe infection, we feel that you are safe to return home at this time. Please plan to follow-up with your PCP in the next 7 to 10 days for a transitional care appointment. Prior to this appointment, please plan to have blood work drawn to assess your "CRP" level. This is a nonspecific blood marker for inflammation in the body. It was elevated while you are here in the hospital, and we would like to see if it remains elevated after your tonsillitis resolves. New prescriptions on discharge: - Medrol Dosepak Note: This is a steroid taper; methylprednisolone 4 mg tablets Please follow instructions on the packaging and take as directed - Augmentin [id number] mg tablets twice daily x 8 additional days Please plan to follow-up with ENT (Dr. Maldonado) in 2 weeks as an outpatient. In regard to your headaches, we did discuss having a brain MRI performed in the hospital to rule out more sinister etiology; however he declined this at time of discharge. We strongly recommend that you follow-up with neurology as an outpatient for headache management. We also recommend that you speak with your PCP about setting out a brain MRI as an outpatient. If develop any new or worsening symptoms, such as intractable headache, nausea, vomiting, fevers, chills, throat swelling, or difficulty breathing, please return to the Emergency Department immediately. It was a pleasure taking care of you. Please reach out any questions concerns. Sincerely, The Hospital medicine team at [facility] Total Time Total Time Spent Total Time Spent (In Minutes): 45 Coding Level of Care Code 89932 INP/OBS DISCH >30 MIN Diagnoses Acute tonsillitis J03.90 Pharyngitis/tonsillitis etiology: unspecified etiology Headache R51.9 Headache chronicity pattern: unspecified pattern Headache type: unspecified Intractability: intractable Sialadenitis K11.20 Failure of outpatient treatment Z78.9 Depression, unspecified depression type F32.A Depression Type: unspecified Irritable bowel syndrome, unspecified type K58.9 Irritable bowel syndrome type: unspecified
[2024-11-15 14:24] VITALS: BP 160/80; TEMP 97.7; O2SAT 95
== END 2024-11-15 14:27 | disposition home or self-care (01) | DRG 153 ==
LOC: 3W 09:50 → ED 09:50 → SUATTDRO 14:36 → 3W 15:55